=== PATIENT | female | born 1955 | race Caucasian/White ===

== ENCOUNTER 2022-12-27 08:21 | Day surgery (SDC) | payer MEDICARE, OTHER ==
[~2022-12-27] VITALS: Ht 157.5 cm; Wt 65.9 kg
[~2022-12-27 08:21] MED LIST: CENTRUM SILVER1 EAC3 PO; FISH OIL 1,0001 EAC2 PO; HYDROXYZINE HCL25 MG PO; MULTIVITAMINS1 EAC7; PRESERVISION A1 EAC1 PO; PREVACID15 MG; TUMS200 MG PO; VITAMIN D1000 UNIT PO; VITAMIN D5000 UNIT; WELLBUTRIN SR150 MG PO; ZANTAC150 MG PO
--- NOTE | 2022-12-27 10:53 | NUR ---
12/27/22 1053 Heather Benson 1050 PATIENT ARRIVES TO PACU AWAKE BUT DROWSY. DENIES PAIN OR NAUSEA. RESP EVEN AND UNLABORED, NC AT 3 LITERS TURNED OFF. SLEEPING WHEN NOT STIMULATED.
--- NOTE | 2022-12-30 08:08 | OR ---
[facility] [address], [place] [address] Signed DATE OF OPERATION: 12/27/2022 SURGEON: Caroline Pelletier MD PREOPERATIVE DIAGNOSES: 1. Progressive cervical dysphagia and gastroesophageal reflux. 2. History of ectopic mucosa proximal esophagus in 2017. POSTOPERATIVE DIAGNOSES: 1. Proximal esophageal ectopic mucosa, uncertain regarding Perrin's epithelium. 2. Distal ulcerative esophagitis and hiatal hernia. PROCEDURE: Esophagogastroduodenoscopy with biopsy. ANESTHESIA: Intravenous sedation, fentanyl 100 mcg and Versed 3.5 mg. INDICATION: This 67-year-old white woman is a patient of Skye Nicole. In 2017, she underwent upper endoscopy for complaints of cervical dysphagia. She had reflux symptoms as well. She is found to have abnormal appearing epithelium 13 cm from the incisors suggestive of Perrin epithelium. Pathology report showed mild chronic inflammation and reactive changes negative for goblet cell metaplasia, though it did look suggestive of Perrin epithelium. She was seen by me in November of 2022 more than a year ago, anticipating followup upper endoscopy with persistent symptoms. Due to the pandemic and other factors, she delayed endoscopy till this time. She continues to have a rather significant cervical dysphagia and is using Tums on a routine basis. She was prescribed Prevacid previously which she says she has taken though it is not listed in the main medical record at this time. She is here to undergo upper endoscopy to better characterize her reflux issue and cervical dysphagia as well as ectopic mucosa of the proximal cervical esophagus. She understands the risk of bleeding, infection, and perforation related to upper endoscopy and wished to proceed. FINDINGS: The mucosa as previously noted was still present. There was no evidence of neoplasm there. Passage of the scope into the proximal esophagus was slightly challenging and may indicate an underlying process. There is erosive ulcerated distal esophagitis as well. She did have a moderate to large-sized hiatal hernia. The stomach and duodenum are reasonably normal. CLOtest was negative. Electronically Signed By: CAROLINE PELLETIER MD 12/30/22 0808 PATIENT NAME: HERNANDO MURPHY OPERATIVE REPORT DATE OF : 51 REPORT #: [id number] PHYSICIAN: CAROLINE PELLETIER MD PCP: SKYE NICOLE REPORT IS CONFIDENTIAL AND NOT TO BE RELEASED WITHOUT AUTHORIZATION [facility] [address], [place] [address] Signed DESCRIPTION OF PROCEDURE: The patient was brought to the endoscopy suite and placed in the lateral decubitus position after undergoing topical Hurricaine spray hypopharyngeal anesthesia. A bite block was placed. An Olympus video upper endoscope was passed in the hypopharynx. The vocal cords appeared normal. The posterior commissure had mild irritative changes. There was no neoplasm. Advancement of the scope into the esophagus initially was not particularly easy, though it was not difficult. Once in the esophagus, it was easily passed down more distally. In the distal esophagus was linear ulcerative esophagitis. No evidence of Perrin epithelium. No stricture. The scope was passed into the stomach which was insufflated with air. Rugal folds were normal. The antrum was reasonably normal though mildly inflamed and pylorus was normal. Scope was passed through into the duodenum, which was mildly inflamed. Biopsies were obtained of the duodenum and scope withdrawn. Biopsies taken of the antrum and more proximal stomach. Retroflexed view confirmed a moderate-sized hiatal hernia. The scope was straightened and withdrawn to the distal esophagus where linear ulcerative changes were noted and these were biopsied. There was no evidence of neoplasm proper and no sign of Perrin epithelium. The scope was withdrawn to the mid esophagus which was biopsied and mindful of previous findings in the proximal esophagus, careful inspection undertaken proximally. There is an erythematous mucosa patch suggestive of Perrin's epithelium, which was difficult to biopsy as the patient had some issues with swallowing given the scope being at about 13-15 cm. A biopsy was obtained, however. The scope was removed and the patient was taken to the recovery room in good condition. CONCLUDING DIAGNOSES: She has had some progression of cervical dysphagia, known underlying reflux and hiatal hernia. Distal ulcerative esophagitis was noted as well. At this point, we will order a video esophagram to better characterize the proximal esophagus, assess for other competing causes of cervical dysphagia including Zenker's diverticulum and I have dedicated prescription for Prilosec 20 mg p.o. b.i.d. We will see her back in the office following her video esophagram to review her reports and outline the plan of management and assess response to change of therapy. Caroline Pelletier MD /YASMINL /[id number] Electronically Signed By: CAROLINE PELLETIER MD 12/30/22 0808 PATIENT NAME: HERNANDO MURPHY OPERATIVE REPORT DATE OF : 51 REPORT #: [id number] PHYSICIAN: CAROLINE PELLETIER MD PCP: SKYE NICOLE REPORT IS CONFIDENTIAL AND NOT TO BE RELEASED WITHOUT AUTHORIZATION [address] [address] Signed cc: ABDULLAHI Shah Copies: SKYE NICOLE ~ Electronically Signed By: CAROLINE PELLETIER MD 12/30/22 0808 PATIENT NAME: HERNANDO MURPHY OPERATIVE REPORT DATE OF : 51 REPORT #: [id number] PHYSICIAN: CAROLINE PELLETIER MD PCP: SKYE NICOLE REPORT IS CONFIDENTIAL AND NOT TO BE RELEASED WITHOUT AUTHORIZATION
--- NOTE | 2022-12-31 16:22 | PATH ---
[facility] [address] [place], [place] [address] Signed SPECIMEN(S): A DUODENAL BIOPSIES SPECIMEN(S): B ANTRUM BIOPSIES SPECIMEN(S): C PROXIMAL STOMACH BIOPSIES SPECIMEN(S): D DISTAL ESOPHAGEAL BIOPSIES SPECIMEN(S): E MID ESOPHAGEAL BIOPSIES SPECIMEN(S): F PROXIMAL ESOPHAGEAL BIOPSY AT 15CM SPECIMEN SOURCE: A. DUODENAL BIOPSIES B. ANTRUM BIOPSIES C. PROXIMAL STOMACH BIOPSIES D. DISTAL ESOPHAGEAL BIOPSIES E. MID ESOPHAGEAL BIOPSIES F. PROXIMAL ESOPHAGEAL BIOPSY AT 15CM CLINICAL HISTORY: Pre: GERD, surveillance. Post: Large hiatal hernia, esophagitis, proximal ectopic epithelium. FINAL PATHOLOGIC DIAGNOSIS: A. 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 - Negative for atypical epithelial features or pathologic inflammation. B. Antrum biopsies: - Benign gastric antral-type mucosa with focal slight chronic inflammation. - Negative for evidence of helicobacter organisms on routine HE stained sections. C. Proximal stomach biopsies: - Benign gastric-type mucosa with focal slight chronic inflammation. - Negative for Helicobacter organisms on routine HE stained sections. D. Distal esophageal biopsies: - Benign esophageal epithelium and gastric glandular mucosa, negative for specialized intestinal metaplasia or dysplasia. - Negative for increased epithelial eosinophils within the esophageal epithelium. E. Mid esophageal biopsies: - Benign esophageal epithelium, negative for increased epithelial eosinophils. F. Proximal esophageal biopsy at 15 cm: - Benign esophageal epithelium, negative for increased epithelial eosinophils. JVR:[id number] PATIENT NAME: HERNANDO MURPHY PATHOLOGY DATE OF : 51 REPORT #: [id number] PHYSICIAN: ANGEL PATHOLOGY PCP: SKYE CHANEY REPORT IS CONFIDENTIAL AND NOT TO BE RELEASED WITHOUT AUTHORIZATION [facility] [address] [place], [place] [address] Signed MICROSCOPIC EXAMINATION: Histologic sections of all submitted blocks are examined by light microscopy. These findings, together with the gross examination, support the pathologic diagnosis. GROSS DESCRIPTION: A. The specimen, labeled and designated "Lithuanian, duodenal biopsies," is received in formalin and consists of two jacobson soft tissue fragments, ranging from 0.4-0.5 cm. Entirely submitted in (A1). B. The specimen, labeled and designated "Lithuanian, antrum biopsies," is received in formalin and consists of two jacobson soft tissue fragments, ranging from 0.4-0.6 cm. Entirely submitted in (B1). C. The specimen, labeled and designated "Lithuanian, proximal stomach biopsies," is received in formalin and consists of three jacobson soft tissue fragments, ranging from 0.2-0.7 cm. Entirely submitted in (C1). D. The specimen, labeled and designated "Lithuanian, distal esophageal biopsies," is received in formalin and consists of four jacobson soft tissue fragments, ranging from 0.2-0.3 cm. Entirely submitted in (D1). E. The specimen, labeled and designated "Lithuanian, mid esophageal biopsies," is received in formalin and consists of three jacobson soft tissue fragments, ranging from 0.2-0.5 cm. Entirely submitted in (E1). F. The specimen, labeled and designated "Lithuanian, proximal esophageal biopsy at 15 cm," is received in formalin and consists of one jacobson soft tissue fragment, 0.4 cm. Entirely submitted in (F1). VB (under the direct supervision of a pathologist) The Gross Description was prepared using a voice recognition system. The report was reviewed for accuracy; however, sound-alike word errors, addition and/or deletions may occur. If there is any question about this report, please contact Client Services. PERFORMING LABORATORY: The technical component was performed by [facility], [address] [place], [place] [address] [address] (CLIA# [id number]). Professional interpretation was performed by [facility] - [facility], [address] [place] [address], [place] [address] (CLIA#: [id number]). Diagnostician: Shahram Maier MD Pathologist PATIENT NAME: HERNANDO MURPHY PATHOLOGY DATE OF : 51 REPORT #: [id number] PHYSICIAN: ANGEL LEOS PCP: SKYE CHANEY REPORT IS CONFIDENTIAL AND NOT TO BE RELEASED WITHOUT AUTHORIZATION [facility] [address] [place] [id number] Signed Electronically Signed 12/31/2022 Copies: ~ PATIENT NAME: HERNANDO MURPHY PATHOLOGY DATE OF : 51 REPORT #: [id number] PHYSICIAN: ANGEL LEOS PCP: SKYE CHANEY REPORT IS CONFIDENTIAL AND NOT TO BE RELEASED WITHOUT AUTHORIZATION
== END 2022-12-27 11:25 | disposition home or self-care (01) ==
LOC: DS 08:21 → OPS 08:21 → DS 10:15 → OPS 10:15 → DS 11:15 → OPS 11:25
PROVIDERS: ATTEND Surgery
PROC: 0DD78ZX Extraction of Stomach, Pylorus, Via Natural or Artificial Opening Endoscopic, Diagnostic (ICD-10-PCS; 2022-12-27)
PROC: 0DD18ZX Extraction of Upper Esophagus, Via Natural or Artificial Opening Endoscopic, Diagnostic (ICD-10-PCS; 2022-12-27)
PROC: 0DD38ZX Extraction of Lower Esophagus, Via Natural or Artificial Opening Endoscopic, Diagnostic (ICD-10-PCS; 2022-12-27)
PROC: 0DD98ZX Extraction of Duodenum, Via Natural or Artificial Opening Endoscopic, Diagnostic (ICD-10-PCS; principal; 2022-12-27 10:15)
DX: K22.10 Ulcer of esophagus without bleeding (principal); K44.9 Diaphragmatic hernia without obstruction or gangrene; K21.9 Gastro-esophageal reflux disease without esophagitis; Z88.2 Allergy status to sulfonamides; Z79.899 Other long term (current) drug therapy
CPT/HCPCS: 99153; G0500; J2250; J3010; J7121

== ENCOUNTER 2024-11-14 09:45 | Emergency (ER) | payer MEDICARE, OTHER ==
[~2024-11-14] VITALS: Ht 157.5 cm; Wt 69.4 kg
[2024-11-14 10:11] LABS: EOSINOPHILS 0.2 % (0-6); HEMATOCRIT 45.3 % (35.0-50.0); HEMOGLOBIN 15.5 g/dL (12.0-18.0); LYMPHOCYTES 5.6 % (24-44); MCH 37.1 (27-36); MCHC 34.3 g/dl (30-36); MCV 108.3 fl (81-99); MONOCYTES 9.4 % (0-12); NEUTROPHILS 81.8 % (39-80); PLATELET COUNT 199 K/uL (140-440); RBC 4.18 M/ul (4.3-5.7); RDW 14.1 (10.5-15.0)
[2024-11-14 10:21] LABS: ALBUMIN 3.2 g/dL (3.4-5.0); ALBUMIN/GLOBULIN RATIO 0.65 (1.1-2.4); ANION GAP 11.7 (7-21); BILIRUBIN, TOTAL 1.7 ng/dL (0.2-1.0); BUN/CREATININE RATIO 5.71 (6.0-28.6); CALCIUM 8.9 mg/dL (8.5-10.1); CREATININE, SERUM 1.05 mg/dL (0.55-1.02); MAGNESIUM 1.6 mg/dL (1.8-2.4); POTASSIUM 3.7 mmol/L (3.5-5.1); PROTEIN, TOTAL 8.1 g/dL (6.4-8.2)
[2024-11-14] MEDS ORDERED: ONDANSETRON 4 MG TAB ODT SL ONE (10:30)
[2024-11-14] MEDS ORDERED: LIDOCAINE & ANTACID 35 ML BTL PO ONE (10:30)
[2024-11-14] MEDS ORDERED: AZITHROMYCIN 250 MG TAB PO ONE (12:15)
[2024-11-14] MEDS ORDERED: ZITHROMAX250 MG PO (12:17)
[2024-11-14] MEDS ORDERED: PEPCID20 MG PO (12:17)
[2024-11-14 12:30] VITALS: BP 128/108
--- NOTE | 2024-11-14 15:14 | EKG ---
[facility] [address] [facility] [place] [address] Signed Normal sinus rhythm Normal ECG No previous ECGs available Confirmed by Donna Pearce MD () on 11/14/2024 3:14:37 PM Electronically Signed By: DONNA PEARCE MD 11/14/24 1514 PATIENT NAME: HERNANDO MURPHY Electrocardiogram DATE OF : 51 PHYSICIAN: DONNA PEARCE MD REPORT #: [id number] REPORT IS CONFIDENTIAL AND NOT TO BE RELEASED WITHOUT AUTHORIZATION
== END 2024-11-14 12:30 | disposition home or self-care (01) ==
LOC: ED 09:45
PROVIDERS: Emergency Medicine
DX: J18.9 Pneumonia, unspecified organism (principal); K21.9 Gastro-esophageal reflux disease without esophagitis; Z87.891 Personal history of nicotine dependence; Z88.2 Allergy status to sulfonamides
CPT/HCPCS: 36415; 71045; 71260; 80053; 83690; 83735; 84484; 85025; 85379; 93005; 93010; 99285-25; A9270; Q9967

== ENCOUNTER 2025-02-08 11:25 | Emergency (ER) | payer MEDICARE, OTHER ==
[~2025-02-08] VITALS: Ht 157.5 cm; Wt 65.0 kg
[~2025-02-08 11:25] MED LIST changes: +PEPCID20 MG PO; +ZITHROMAX250 MG PO
[2025-02-08] MEDS ORDERED: CITALOPRAM HBR20 MG PO (11:37)
[2025-02-08] MEDS ORDERED: SODIUM CHLORIDE 0.9% 1,000 ML IV ONE (11:45)
[2025-02-08] MEDS ORDERED: ondansetron HCL 4 MG/2 ML VIAL IV ONE (11:45)
[2025-02-08 11:52] LABS: BASOPHILS 0.9 % (0-2); EOSINOPHILS 0.3 % (0-6); HEMATOCRIT 42.1 % (35.0-50.0); HEMOGLOBIN 14.9 g/dL (12.0-18.0); LYMPHOCYTES 11.6 % (24-44); MCH 36.9 (27-36); MCHC 35.4 g/dl (30-36); MCV 104.1 fl (81-99); MONOCYTES 8.5 % (0-12); NEUTROPHILS 78.7 % (39-80); PLATELET COUNT 233 K/uL (140-440); RBC 4.04 M/ul (4.3-5.7); RDW 14.4 (10.5-15.0)
[2025-02-08 12:21] LABS: ALBUMIN 3.2 g/dL (3.4-5.0); ALBUMIN/GLOBULIN RATIO 0.73 (1.1-2.4); ANION GAP 19.5 (7-21); BILIRUBIN, TOTAL 0.8 mg/dL (0.2-1.0); BUN/CREATININE RATIO 8.04 (6.0-28.6); CALCIUM 8.8 mg/dL (8.5-10.1); CREATININE, SERUM 0.87 mg/dL (0.55-1.02); POTASSIUM 3.5 mmol/L (3.5-5.1); PROTEIN, TOTAL 7.6 g/dL (6.4-8.2)
[2025-02-08 13:46] LABS: BILIRUBIN, URINE NEGATIVE (negative); BLOOD/HGB, URINE NEGATIVE (Negative); KETONE, URINE SMALL (Negative); LEUK ESTERASE, URINE NEGATIVE (negative); NITRITE, URINE NEGATIVE (negative); PH, URINE 5.5 (5-7)
[2025-02-08] MEDS ORDERED: ONDANSETRON ODT8 MG PO (14:29)
[2025-02-08 14:38] VITALS: BP 123/70
[2025-02-08] MEDS ORDERED: ONDANSETRON 4 MG TAB ODT SL ONE (14:45)
== END 2025-02-08 14:38 | disposition home or self-care (01) ==
LOC: ED 11:25
PROVIDERS: Emergency Medicine
DX: K52.9 Noninfective gastroenteritis and colitis, unspecified (principal); Z87.891 Personal history of nicotine dependence; Z88.2 Allergy status to sulfonamides; Z79.899 Other long term (current) drug therapy
CPT/HCPCS: 36415; 80053; 81003; 83690; 85025; 96374; 99284-25; A9270; J2405; J7030

== ENCOUNTER 2025-02-16 06:55 | Inpatient (IN) | payer MEDICARE, OTHER ==
[~2025-02-16] VITALS: Ht 157.5 cm; Wt 65.3 kg
[~2025-02-16 06:55] MED LIST changes: +CITALOPRAM HBR20 MG PO; +ONDANSETRON ODT8 MG PO
--- OUTSIDE RECORDS SUMMARY | 2025-02-16 06:57 | XMS ---
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 Crista VISIT COUNT (12 MO.) 3 TRACE Taylor TOTAL 3 NOTE: Visits indicate total known visits. ED/UCC VISIT TRACKING (12 MO.) 02/16/2025 06:55 [facility] TYPE: Emergency COMPLAINT: - WEAKNESS 02/08/2025 11:25 [facility] TYPE: Emergency COMPLAINT: - WEAKNESS DIAGNOSES: - Allergy status to sulfonamides - Noninfective gastroenteritis and colitis, unspecified - Other fdc (current) drug therapy - Personal history of nicotine dependence - Weakness 11/14/2024 09:[address] [facility] [place] TYPE: Emergency COMPLAINT: - HEART RATE ISSUES DIAGNOSES: - Allergy status to sulfonamides - Gastro-esophageal reflux disease without esophagitis - Personal history of nicotine dependence - Pneumonia, unspecified organism - Shortness of breath INPATIENT VISIT TRACKING (12 MO.) No inpatient visits to display in this time frame [email or web address]
[2025-02-16] MEDS ORDERED: SODIUM CHLORIDE 0.9% 1,000 ML IV ONE (07:15)
[2025-02-16] MEDS ORDERED: ondansetron HCL 4 MG/2 ML VIAL IV ONE (07:15)
[2025-02-16 07:28] LABS: BASOPHILS 0.4 % (0-2); EOSINOPHILS 0.2 % (0-6); HEMATOCRIT 40.4 % (35.0-50.0); HEMOGLOBIN 14.6 g/dL (12.0-18.0); LYMPHOCYTES 9.4 % (24-44); MCH 36.6 (27-36); MCHC 36.2 g/dl (30-36); MCV 101.1 fl (81-99); MONOCYTES 12.5 % (0-12); NEUTROPHILS 77.5 % (39-80); PLATELET COUNT 227 K/uL (140-440); RDW 14.5 (10.5-15.0)
[2025-02-16 07:50] LABS: ALBUMIN 3.3 g/dL (3.4-5.0); ALBUMIN/GLOBULIN RATIO 0.77 (1.1-2.4); ANION GAP 17.9 (7-21); BILIRUBIN, TOTAL 1.1 mg/dL (0.2-1.0); POTASSIUM 2.9 mmol/L (3.5-5.1); PROTEIN, TOTAL 7.6 g/dL (6.4-8.2); TSH, 3RD GENERATION 2.647 uIU/mL (0.358-3.740)
[2025-02-16] MEDS ORDERED: POTASSIUM CHLORIDE 10 MEQ/100 ML BAG IV SCH (08:00)
[2025-02-16 08:35] LABS: BILIRUBIN, URINE NEGATIVE (negative); BLOOD/HGB, URINE NEGATIVE (Negative); KETONE, URINE SMALL (Negative); LEUK ESTERASE, URINE TRACE (negative); NITRITE, URINE NEGATIVE (negative)
[2025-02-16 08:44] LABS: BACTERIA, URINE NONE SEEN /hpf (negative); CASTS, URINE NONE SEEN \\lpf; COLLECTION TYPE, URINE CLEAN CATCH; CRYSTALS, URINE NONE SEEN (0-1+); EPITHELIAL CELLS, URINE SQUAMOUS 2+ /lpf (0-1+); RED BLOOD CELLS, URINE 0-1 /hpf (0-5); REFLEX CULTURE, URINE No (No)
--- NOTE | 2025-02-16 09:50 | NUR ---
PATIENT RESTING IN BED WATCHING TV. CURTAIN OPEN FOR PATIENT VISUALIZATION AT NURSES STATION. BED ALARM ACTIVATED. CALL LIGHT AND PERSONAL BELONGINGS ARE WITHIN REACH.
[2025-02-16] MEDS ORDERED: ENOXAPARIN SODIUM 40 MG/0.4 ML SYR SUB-Q SCH ×2 (12:27→12:45)
[2025-02-16] MEDS ORDERED: PANTOPRAZOLE SODIUM 40 MG/10 ML VIAL IV SCH ×2 (12:27→12:45)
[2025-02-16] MEDS ORDERED: SODIUM CHLORIDE 0.9% 1,000 ML IV SCH ×2 (12:30→12:45)
[2025-02-16] MEDS ORDERED: ACETAMINOPHEN 325 MG TAB PO PRN ×2 (12:30→12:45)
[2025-02-16] MEDS ORDERED: ondansetron HCL 4 MG/2 ML VIAL IV PRN ×2 (12:30→12:45)
[2025-02-16 13:08] LABS: ANION GAP 17.7 (7-21); BUN/CREATININE RATIO 9.09 (6.0-28.6); CALCIUM 8.3 mg/dL (8.5-10.1); CREATININE, SERUM 0.77 mg/dL (0.55-1.02); MAGNESIUM 1.7 mg/dL (1.8-2.4); PHOSPHORUS, INORGANIC 2.5 mg/dL (2.5-4.9); POTASSIUM 3.7 mmol/L (3.5-5.1)
[2025-02-16 13:36] VITALS: BP 131/68
[2025-02-16] MEDS ORDERED: ONDANSETRON ODT4 MG PO (13:54)
[2025-02-16] MEDS ORDERED: VITAMIN D350 MCG PO (13:57)
[2025-02-16] MEDS ORDERED: CEFTRIAXONE SODIUM 2 GM in SODIUM CHLORIDE 0.9% 100 ML IV SCH (14:28)
[2025-02-16] MEDS ORDERED: MAGNESIUM SULFATE 2 GM/50 ML BAG IV ONE (14:30)
--- NOTE | 2025-02-16 16:22 | NUR ---
PT HAS BEEN RESTING, UPON ENTERING ROOM PT HAD EMESIS ON GOWN. STATES SHE HAS BEEN NAUSEA JUST LIKE SHE IS AT HOME, PRN ZOFRAN GIVEN - SEE JAN. CLEANED PATINET UP AND PT HAD ANOTHER EMESIS, WHICH GOWNS/LINEN WERE EXCHANGED AGAIN, WIPE DOWN COMPLETED WITH THIS RN AND SKIN TANNER. PT REPOSITIONED IN BED. IV ABX STARTED - SEE JAN. PT PUREWICK IN PLACE, LITTLE OUTPUT SO FAR BUT THERE IS SOME OUTPUT. CALL LIGHT WITHIN REACH, ALL PT CARE NEEDS MET. BED ALARM IN PLACE PT DOES NOT USE CALL LIGHT APPROPRIATELY.
[2025-02-16] MEDS ORDERED: MAGNESIUM SULFATE 50 ML IV ONE (17:04)
--- NOTE | 2025-02-16 17:24 | NUR ---
PT IV ABX COMPLETED, STARTED MAGNESIUM SULFATE - SEE JAN. PT SITTING UP IN THE BED, FAMILY JUST ARRIVED AND VISITING AT THIS TIME. OFFERED PT SOME PAIN MEDS PER FAMILY REQUEST BUT INFORMED ALSO WITH THE NAUSEA, MAY WANT TO HOLD OFF AT THIS TIME, WHICH PATIENT AGREES AT THIS TIME. DINNER TRAY WAS DELIVERED BUT PATIENT DEFERRED AND REQUESTED I MOVE THE TRAY AWAY FROM BEDSIDE. CALL LIGHT WITHIN REACH, ALL PT CARE NEEDS MET AT THIS TIME.
[2025-02-16 17:35] VITALS: BP 104/63
--- NOTE | 2025-02-16 18:17 | NUR ---
PATIENT IN BED AT THIS TIME. SUPERVISOR TANK STORAGE CHARTED VITALS AND I&O'S. CALL LIGHT WITHIN REACH, NO FURTHER NEEDS.
[2025-02-16 18:18] VITALS: BP 104/63
--- NOTE | 2025-02-16 19:10 | NUR ---
REPORT RECEIVED FROM LORENA MORAN. PATIENT RESTING IN BED VISITING WITH HER COUSIN AT BEDSIDE. PATIENT WITHOUT NEEDS AT THIS TIME. CALL LIGHT AND PERSONAL BELONGINGS ARE WITHIN REACH.
[2025-02-16 20:09] VITALS: BP 125/69
[2025-02-16 20:11] VITALS: BP 125/69
--- NOTE | 2025-02-16 20:20 | NUR ---
PATIENT ASSESSMENT COMPLETED. PATIENT IS ALERT AND ORIENTED X4. FRESH ICE WATER PROVIDED. PATIENT WITHOUT FURTHER NEEDS AT THIS TIME. CALL LIGHT AND PERSONAL BELONGINGS ARE WITHIN REACH. VITAL SIGNS ARE STABLE.
[2025-02-16] MEDS ORDERED: MELATONIN 3 MG TAB PO PRN ×2 (21:00)
[2025-02-16] MEDS ORDERED: MIRTAZAPINE 15 MG TAB PO SCH (21:00)
--- NOTE | 2025-02-16 22:58 | NUR ---
IN ROOM FOR HOURLY ROUNDING. PATIENT APPEARS UNCOMFORTABLE, BUT STATES SHE DOES NOT HAVE ANY PAIN. PATIENT DENIES NAUSEA AT THIS TIME WELL. PATIENT REPORTS SHE IS HAVING A HARD TIME FALLING ASLEEP. CALL LIGHT AND PERSONAL BELONGINGS ARE WITHIN REACH.
--- NOTE | 2025-02-16 23:30 | NUR ---
PATIENT MEDICATED PER EMAR. PATIENT AGREED TO LET THIS RN REPOSITION HER. BEAU COMER IN ROOM TO ASSIST THIS RN WITH PATIENT REPOSITIONING. MARLEE CARE DONE AND FRESH PUREWICK PLACED AT THIS TIME. PATIENT WITHOUT FURTHER NEEDS AT THIS TIME. CALL LIGHT AND PERSONAL BELONGINGS ARE WITHIN REACH.
[2025-02-17] VITALS (12 sets, daily range): BP systolic 116–148; BP diastolic 55–104
--- NOTE | 2025-02-17 00:52 | NUR ---
PATIENT RESTING IN BED WITH EYES CLOSED. EVEN AND UNLABORED RESPIRATIONS NOTED. CALL LIGHT AND PERSONAL BELONGINGS ARE WITHIN REACH.
--- NOTE | 2025-02-17 01:50 | NUR ---
IN ROOM FOR PATIENT REPOSITIONING AND MORNING ASSESSMENT. BEAU COMER IN ROOM TO HELP WITH REPOSITIONING AND VITALS. PATIENT REPORTS SHE FEELS LIKE SHE NEEDS TO HAVE A BOWEL MOVEMENT. THIS RN AND BEAU COMER PLACED PATIENT ON BEDPAN AT THIS TIME. THIS RN EDUCATED PATIENT TO CALL WHEN SHE IS FINISHED.
--- NOTE | 2025-02-17 01:55 | NUR ---
DRY CANS OPERATOR AND RN OBTAINED VITALS AND OUTPUT. PT NEEDED TO USE BATHROOM. DRY CANS OPERATOR AND RN PLACED PT ON BEDPAN. PT INSTRUCTED TO CALL WHEN FINISHED. CALL LIGHT WITHIN REACH.
--- NOTE | 2025-02-17 02:30 | NUR ---
PATIENT WAS UNABLE TO HAVE BOWEL MOVEMENT. FRESH PUREWICK PLACED AT THIS TIME. WARM BLANKET PROVIDED. PATIENT WITHOUT FURTHER NEEDS AT THIS TIME. BED ALARM ACTIVATED. CALL LIGHT AND PERSONAL BELONGINGS ARE WITHIN REACH.
--- NOTE | 2025-02-17 03:55 | NUR ---
PATIENT RESTING IN BED ON HER BACK. PATIENT WITH EYES CLOSED. EVEN AND UNLABORED RESPIRATIONS NOTED. CALL LIGHT AND PERSONAL BELONGINGS ARE WITHIN REACH. BED ALARM ACTIVATED.
--- NOTE | 2025-02-17 05:00 | NUR ---
PATIENT RESTING IN BED WITH EYES CLOSED AND MOUTH OPEN. EVEN AND UNLABORED RESPIRATIONS NOTED. CALL LIGHT AND PERSONAL BELONGINGS ARE WITHIN REACH.
--- NOTE | 2025-02-17 05:00 | NUR ---
PATIENT HAS BEEN NPO SINCE MIDNIGHT.
[2025-02-17 05:22] LABS: BASOPHILS 0.1 % (0-2); EOSINOPHILS 0.1 % (0-6); HEMATOCRIT 37.7 % (35.0-50.0); HEMOGLOBIN 13.4 g/dL (12.0-18.0); LYMPHOCYTES 6.2 % (24-44); MCH 36.6 (27-36); MCHC 35.5 g/dl (30-36); MCV 102.8 fl (81-99); MONOCYTES 12.9 % (0-12); NEUTROPHILS 80.7 % (39-80); PLATELET COUNT 217 K/uL (140-440); RBC 3.66 M/ul (4.3-5.7); RDW 14.6 (10.5-15.0)
[2025-02-17 05:41] LABS: ALBUMIN 2.6 g/dL (3.4-5.0); ALBUMIN/GLOBULIN RATIO 0.63 (1.1-2.4); BILIRUBIN, TOTAL 0.7 mg/dL (0.2-1.0); BUN/CREATININE RATIO 8.53 (6.0-28.6); CALCIUM 7.9 mg/dL (8.5-10.1); CREATININE, SERUM 0.82 mg/dL (0.55-1.02); MAGNESIUM 2.4 mg/dL (1.8-2.4); PROTEIN, TOTAL 6.7 g/dL (6.4-8.2)
--- NOTE | 2025-02-17 05:41 | NUR ---
TOPOGRAPHICAL FIELD ASSISTANT OBTAINED VITALS. NO NEW I&O AT THIS TIME. PT STATES NO NEEDS AND CALL LIGHT WITHI REACH.
--- NOTE | 2025-02-17 06:54 | NUR ---
NEW BAG OF NS INFUSING AT THIS TIME. PATIENT WITHOUT FURTHER NEEDS. CALL LIGHT AND PERSONAL BELONGINGS ARE WITHIN REACH.
--- NOTE | 2025-02-17 07:15 | NUR ---
REPORT RECEIVED FROM FUNERAL DRIVER RN JIMMY. ULTRASOUND IS IN THE ROOM AND GETTING AN ABDOMINAL ULTRASOUND. CALL LIGHT AND PERSONAL BELONGINGS ARE WITHIN REACH.
--- NOTE | 2025-02-17 07:35 | NUR ---
0238 THIS RN GOT VERBAL CONSENT FROM PATIENT TO GIVE UPDATE TO PATIENT JH STEELE. JH PHONE NUMBER [phone]. AFTER TALKING WITH JH, SHE STATES PATIENT "CAME DOWN WITH PNA ABOUT 4 WEEKS AGO THEN HAD THE FLU, THEN PROGRESSIVELY STARTED GETTING WORSE." JH ALSO STATES PATIENT WAS WALKING WITH A CANE BEFORE "ALL THIS STARTED ABOUT 3-4 WEEKS AGO". JH WILL BE BY LATER TO VISIT. UPDATE GIVEN TO LORENA SRIVASTAVA, PATIENT DAY SHIFT NURSE.
--- NOTE | 2025-02-17 08:18 | NUR ---
PATIENT LYING IN BED WITH EYES CLOSED. RESPIRATIONS EVEN AND UNLABORED. PUREWICK IN PLACE AND NORMAL SALINE RUNNING AT 125ML/HR. CALL LIGHT IS WITHIN REACH.
--- NOTE | 2025-02-17 08:24 | NUR ---
UR CLINICAL REVIEW: 2MN SAUNDRA, MEETS INPT FOR FTT, HYPONATREMIA, HYPOMAGNESEMIA, HYPOKALEMIA IV FLUIDS, IV ANTIBIOTICS, LAB TRENDING MEDICARE INPT 02/16/2025 @ 1228 ORDER MATCHES REG NO AUTH REQUIRED PER MEDICARE RULES PLAN TO DC TO HOME WITH HOME HEALTH VS SNF.
[2025-02-17] MEDS ORDERED: POTASSIUM BICARBONATE/CIT AC 20 MEQ TABEF PO ONE (09:00)
[2025-02-17] MEDS ORDERED: POTASSIUM CHLORIDE 40 MEQ,LIDOCAINE HCL 1% 40 MG in DEXTROSE 5% 250 ML IV ONE (09:00)
--- NOTE | 2025-02-17 10:11 | NUR ---
VISITED DURING SPIRITUAL CARE ROUNDS. PT APPEARED TO BE SLEEPING. DID NOT DISTURB. PROVIDED PRAYER.
--- NOTE | 2025-02-17 10:11 | NUR ---
PATIENT IS LYING IN BED WITH HOB ELEVATED. BEAU NOWAK IS IN THE ROOM AND GETTING VITAL SIGNS. TV IS ON. PATIENT STATED NO FURTHER NEEDS AT THIS TIME. CALL LIGHT AND PERSONAL BELONGINGS ARE WITHIN REACH.
[2025-02-17] MEDS ORDERED: TUMS200 MG PO (10:14)
--- NOTE | 2025-02-17 10:14 | NUR ---
MED REC COMPLETE
--- NOTE | 2025-02-17 10:17 | NUR ---
PATIENT WAS IN HER BED AT THIS TIME, NEWS REEL CAMERAMAN CHARTED VITALS, PATIENT WAS NPO, CALL LIGHT WITH IN REACH AND NOTHING ELSE NEEDED AT THIS TIME.
--- NOTE | 2025-02-17 10:37 | EKG ---
[facility] [address] [facility] [place] [address] Signed Normal sinus rhythm ST \T\ T wave abnormality, consider inferior ischemia ST \T\ T wave abnormality, consider anterolateral ischemia Prolonged QT Abnormal ECG When compared with ECG of 14-NOV-2024 09:55, Significant changes have occurred Confirmed by Beau Sierra DO ([id number]) on 02/17/2025 10:37:32 AM Electronically Signed By: BEAU SIERRA DO 02/17/25 1037 PATIENT NAME: JEFFREYHERNANDO VIDAL Electrocardiogram DATE OF : 51 PHYSICIAN: BEAU SIERRA DO REPORT #: [id number] REPORT IS CONFIDENTIAL AND NOT TO BE RELEASED WITHOUT AUTHORIZATION
--- NOTE | 2025-02-17 11:10 | NUR ---
PATIENT IS LYING IN BED WITH HOB ELEVATED. PATIENT WITH EYES CLOSED AND RESPIRATIONS ARE EVEN AND UNLABORED. ROUNDED ON THE PATIENT AT THIS TIME. FULL ASSESMENT COMPLETE AND DOCUMENTED IN THE CHART. PATIENT IS ALERT AND ORIENTED TIMES FOUR. PATING WITH NO COMPLAINTS OF PAIN OR NAUSEA. PATIENT UNABLE TO VERBALIZE HER LAST BM. THIS RN PUT IN VERBAL ORDER FOR BOWEL CARE MEDICATIONS TO BE STARTED. PATIENT AFFECT IS FLAT. PATIENT WITH A PUREWICK IN PLACE. THIS RN DELEGATED TO BEAU COBB TO CHANGE THE PUREWICK. BEAU COBB EXPRESSED UNDERSTANDING. PATIENT WORKS WITH PT AND OT. PATIENT WITHG GENERALIZED WEAKNESS NOTED. IV SITE FLUSHED WITH 10 ML NORMAL SALINE. IV DRESSING IS CLEAN, DRY, AND INTACT. NS IS INFUSING AT 125 ML/HR. PATIENT IS ON A REGULAR DIET. ABDOMEN IS FIRM AND DISTENDED. BOWEL TONES ARE ACTIVE IN ALL FOUR QUADRANTS. DIETARY CONSULT IN PLACE. CARDIAC WITH NORMAL S1 AND S2 ON AUSCULTATION. RADIAL AND PEDAL PULSES ARE STRONG BILATERALLY. CAPILLARY REFILL IN THE UPPER AND LOWER EXTREMITIES IS GREATER THAN 3 SECONDS BILATERALLLY. PATIENT WITH NO EDEMA NOTED. SENSATION INTACT WITH NO COMPLAINTS OF NUMBNESS OR TINGLING. PATIENT IS ON ROOM AIR AND LUNG SOUNDS ARE CLEAR IN THE UPPER LOBES AND DIMINISHED IN THE BASES BILATERALLY. PATIENT STATED NO FURTHER NEEDS AT THIS TIME. CALL LIGHT AND PERSONAL BELONGINGS ARE WITHIN REACH.
[2025-02-17] MEDS ORDERED: PHARMACY RENAL DOSE ADJUSTMENT 1 DOSE MISC PO SCH ×2 (12:00)
--- NOTE | 2025-02-17 12:07 | NUR ---
PATIENT IS LYING IN BED WITH EYES CLOSED. RESPIRATIONS ARE EVEN AND UNLABORED. CALL LIGHT AND PERSONAL BELLONGS ARE WITHIN REACH.
--- NOTE | 2025-02-17 12:14 | NUR ---
Spoke with Aleja. She is resting in bed. Speach is very slow. Hands are purple. She states she has always had purple hands since she was a child. Pt is cold and covered with a warm blanket. She denies needs. Drinking a glass of fluid with potassium written on it. She requests water, I let her nurse know.
[2025-02-17] MEDS ORDERED: LIDOCAINE HCL 4% 1 EACH PATCH TD SCH (13:00)
[2025-02-17] MEDS ORDERED: HYDROmorphone HCL 1 MG/ML SYR IV PRN (13:00)
--- NOTE | 2025-02-17 14:08 | NUR ---
PATIENT IS LYING IN BED WITH HOB ELEVATED. PATIENT WITH EYES CLSOED AND RESPIRATIONS ARE EVEN AND UNLABORED. MAINTENANCE FLUIDS AND POTASSIUM CHLORIDE ARE INFUSING AT THIS TIME. PATIENT STATES SHE IS SLEEPING. PATIENT STATED NO NEEDS AT THIS TIME. CALL LIGHT AND PERSONAL BELONGINGS ARE WITHIN REACH.
--- NOTE | 2025-02-17 15:17 | NUR ---
PAIENT LYING IN BED WITH EYES CLOSED, RESPIRATIONS EVEN AND UNLABORED. FOCUSED ASSESSMENTS DOCUMENTED. PATIENT IV FLUSHED AND WNL. PATIENT DENIES PAIN. PATIENT HAS MODERATE ABDOMINAL DISTENTION, TENDER TO PALPATION, AND HAS ACTIVE BOWEL TONES. RAILROAD ACCOUNTANT NOTIFIED RN OF PATIENT NOT VOIDING. BLADDER SCAN WAS DONE ON PATIENT AND ESTIMATED VOLUME WAS OVER 1,000 ML. CALL LIGHT AND PERSONAL BELONGINGS ARE WITHIN REACH.
--- NOTE | 2025-02-17 15:22 | NUR ---
NOTIFIED OF PATIENT NOT VOIDING FOR OUR SHIFT. STATED TO INSERT A FAOLEY CATHETER. STATED HE WOULD PUT IN ORDERS.
[2025-02-17] MEDS ORDERED: LIDOCAINE 2% VISCOUS 6 ML SYR TOP ONE (15:30)
--- NOTE | 2025-02-17 15:58 | NUR ---
PATIENT LYING IN BED WITH EYES CLOSED, RESPIRATIONS EVEN AND UNLABORED. PATIENT EDUCATED ON TALAVERA CATHETER INSERTION. PATIENT EXPRESSED UNDERSTANDING. LORENA SRIVASTAVA AND LORENA WHITMAN ASSISTED WITH INSERTION. PATIENT TOLERATED WELL. 16 BULGARIAN INSERTED WITH CONTENTRATED URINE IN TUBING. BALLOON INFLATED WITH 10ML. PATIENT WITH BRIEF IN PLACE. TALAVERA CATHETER WITH STAT-LOCK ON RIGHT LEG. PATIENT STATED NO FURTHER NEEDS AT THIS TIME. CALL LIGHT AND PERSONAL BELONGINGS ARE WITHIN REACH.
--- NOTE | 2025-02-17 16:26 | NUR ---
PATIENT LYING IN BED WITH HER EYES CLOSED. PATIENT HAS EVEN UNLABORED RESPIRATIONS. IV FLUID INFUSING AT 125ML/HR. CALL LIGHT AND PERSONAL BELONGINGS ARE WITHIN REACH.
--- NOTE | 2025-02-17 16:34 | NUR ---
UPDATE GIVEN TO FAMILY MEMBER AT THIS TIME. HE STATED TO LET THE PATIENT KNOW HE CAME BY BUT SHE WAS SLEEPING. FAMILY MEMBER STATED HE WOULD COME BACK LATER.
--- NOTE | 2025-02-17 17:18 | NUR ---
PATIENT NIECE GIVEN UPDATE AT THIS TIME. ALL QUESTION ANSWERED. CALL ENDED.
--- NOTE | 2025-02-17 17:26 | NUR ---
VITAL SIGNS TAKEN AND DOCUMENTED IN THE CHART. PATIENT LYING IN BED WITH HOB SLIGHTLY ELEVATED. PATIENT HAS EYES CLOSED, RESPIRATIONS ARE EVEN AND UNLABORED. CALL LIGHT AND PERSONAL BELONGINGS ARE WITHIN REACH.
--- NOTE | 2025-02-17 18:10 | NUR ---
PATIENT IS LYING IN BED WITH EYES OPEN AND RESPIRATIONS ARE EVEN AND UNLABORED. PATIENT WITH THE TV AND STATING "I WILL WAIT" ON DINNER. IV PUMP CLEARED OF INTAKE FLUID. PATIENT TALAVERA CATHETER WITH CONCENTRATED URINE. PATIENT STATED NO FURTHER NEEDS AT THIS TIME. CALL LIGHT AND PERSONAL BELONGINGS ARE WITHIN REACH.
--- NOTE | 2025-02-17 19:15 | NUR ---
REPORT RECEIVED FROM LORENA SRIVASTAVA. PATIENT RESTING IN BED WITH EYES CLOSED. EVEN AND UNLABORED RESPIRATIONS NOTED. CALL LIGHT AND PERSONAL BELONGINGS ARE WITHIN REACH.
--- NOTE | 2025-02-17 20:55 | NUR ---
PATIENT SITTING UP IN BED WATCHING TV. PATIENT REQUESTING PAIN MEDICATION WITH NIGHTLY MEDICATIONS. PATIENT WITHOUT FURTHER NEEDS AT THIS TIME. CALL LIGHT AND PERSONAL BELONGINGS ARE WITHIN REACH.
[2025-02-17] MEDS ORDERED: POLYETHYLENE GLYCOL 3350 1 PACKET PO SCH (21:00)
[2025-02-17] MEDS ORDERED: SENNOSIDES/DOCUSATE 1 EA TAB PO SCH (21:00)
[2025-02-17] MEDS ORDERED: LIDOCAINE PATCH REMOVAL 1 EA TD SCH (21:00)
--- NOTE | 2025-02-17 21:30 | NUR ---
PATIENT ASSESSMENT COMPLETED. PATIENT IS ALERT AND ORIENTED X4. PATIENT REPORTING 7/10 PAIN IN HER ABDOMEN. IV PAIN MEDICATION ADMINITERED PER EMAAnastasiia. PEPPER RN IN ROOM TO ASSIST WITH PATIENT REPOSITIONING. PATIENT TOLERATED MEDS WITH APPLESAUCE, BUT TOOK ~2-3 MINUTES TO SWOLLOW EACH BITE. PATIENT WITHOUT FURTHER NEEDS AT THIS TIME. CALL LIGHT AND PERSONAL BELONGINGS ARE WITHIN REACH.
--- NOTE | 2025-02-17 22:02 | NUR ---
PIANO CASE MAKER OBTAINED VITALS AND I&O. TALAVERA CATH EMTPIED. PT STATES NO NEEDS AT THIS TIME. CALL LIGHT WITHIN REACH.
--- NOTE | 2025-02-17 22:41 | NUR ---
LIDOCAINE PATCH REMOVED FROM BACK. PT SITTING UPRIGHT. ATTEMPTED A FEW SIPS OF ENSURE BUT IS DROWSY AND DELAYED SWALLOW NOTED.
[2025-02-18] VITALS (9 sets, daily range): BP systolic 112–145; BP diastolic 59–83
--- NOTE | 2025-02-18 00:38 | NUR ---
PT SLEEPING SOUNDLY-APPEARS COMFORTABLE. NEW BAG IVF HUNG. DINNER TRAY AND ALL FLUIDS REMOVED, PT NOW NPO FOR SURGERY TODAY.
--- NOTE | 2025-02-18 02:14 | NUR ---
PATIENT FOCUS ASSESSMENT COMPLETED. PATIENT IS RESTING IN BED WITH EYES CLOSED. EVEN AND UNLABORED RESPIRATIONS NOTED. PATIENT BOWEL TONES ARE ACTIVE IN ALL 4 QUADRANTS. PATIENT HANDS WERE NOTED TO BE COLD, PULSES ARE STRONG, BUT CAPILLARY REFILL TO BUE ARE >3 SECONDS. WARM BLANKET APPLIED TO PATIENT UPPER BODY AND WRAPPED HER HANDS. TALAVERA WITH CLEAR YELLOW DRAINAGE. CALL LIGHT AND PERSONAL BELONGINGS ARE WITHIN REACH.
--- NOTE | 2025-02-18 04:00 | NUR ---
PATIENT RESTING IN BED WITH TV ON. PATIENT EYES ARE CLOSED AT THIS TIME. EVEN AND UNLABORED RESPIRATIONS NOTED. CALL LIGHT AND PERSONAL BELONGINGS ARE WITHIN REACH.
[2025-02-18 05:18] LABS: BASOPHILS 0.6 % (0-2); EOSINOPHILS 0.6 % (0-6); HEMATOCRIT 32.9 % (35.0-50.0); HEMOGLOBIN 11.7 g/dL (12.0-18.0); LYMPHOCYTES 9.8 % (24-44); MCH 36.5 (27-36); MCHC 35.6 g/dl (30-36); MCV 102.4 fl (81-99); MONOCYTES 16.2 % (0-12); NEUTROPHILS 72.8 % (39-80); PLATELET COUNT 180 K/uL (140-440); RBC 3.21 M/ul (4.3-5.7); RDW 14.8 (10.5-15.0)
--- NOTE | 2025-02-18 05:30 | NUR ---
THIS RN AND BEAU COMER IN ROOM FOR PATIENT'S MORNING VITALS. TALAVERA CARE AND PRE-PROCEDURE WIPE DOWN COMPLETED, FRESH GOWN AND LINENS PROVIDED, AND PERSONAL WATCH TAKEN OFF AND PLACE IN PATIENT'S ROOM LOCK BOX. WARM BLANKETS PROVIDED. PATIENT WITHOUT FURTHER NEEDS AT THIS TIME. CALL LIGHT AND PERSONAL BELONGINGS ARE WITHIN REACH.
[2025-02-18 05:31] LABS: BUN/CREATININE RATIO 6.94 (6.0-28.6); CALCIUM 7.7 mg/dL (8.5-10.1); CREATININE, SERUM 0.72 mg/dL (0.55-1.02); MAGNESIUM 1.9 mg/dL (1.8-2.4)
--- NOTE | 2025-02-18 07:08 | NUR ---
REPORT RECEIVED FROM LORENA MARQUEZ. PATIENT IS LYING IN BED WITH HOB ELEVATED. PATIENT WITH EYES CLOSED AND RESPIRATIONS ARE EVEN AND UNLABORED. CALL LIGHT AND PERSONAL BELONGINGS ARE WITHIN REACH.
[2025-02-18] MEDS ORDERED: CEFAZOLIN SODIUM 2 GM/20 ML SYR IV SCH (07:40)
[2025-02-18] MEDS ORDERED: POTASSIUM CHLORIDE 10 MEQ TABCR PO ONE (07:45)
--- NOTE | 2025-02-18 08:00 | NUR ---
INTO ROOM TO SEE PATIENT. PATIENT NIECE IN ROOM. PATIENT GETTING READY FOR SURGERY. PATIENT STATES SHE SLEPT BETTER LAST NIGHT. ASKED IF THEY HAD ANY QUESITONS AT THIS TIME. DENIES ANY NEEDS.
--- NOTE | 2025-02-18 08:15 | NUR ---
FULL ASSESSMENT COMPLETE AT THIS TIME. PATIENT WITH TWO VISITORS IN THE ROOM AT THIS TIME. PATIENT IS LYING IN BED WITH HOB ELEVATED. PATIENT IS ALERT AND ORIENTED TIMES FOUR. PATIENT AFFECT IS FLAT BUT IS MORE TALKATIVE THAN YESTERDAY. PATIENT WITH PT, OT, AND ST ORDERED. PATIENT WITH GENERALIZED WEAKNESS. PATIENT WITH A TALAVERA CATHETER IN PLACE THAT HAS CONCENTRATED URINE. SCD'S IN PLACE. NS IS INFUSING AT 125 ML/HR. PATIENT IS NPO AT THIS TIME FOR SURGERY. ABDOMEN IS TENDER AND MILDLY DISTENDED. BOWEL TONES ARE ACTIVE IN ALL FOUR QUADRANTS. CARDIAC WITH NORMAL S1 AND S2 ON AUSCULTATION. RADIAL AND PEDAL PULSES ARE STRONG BILATERALLY. CAPILLARY REFILL IN THE UPPER AND LOWER EXTREMITIES IS GREATER THAN 3 SECONDS. NO EDEMA NOTED. SENSATION INTACT WITH NO COMPLAINTS OF NUMBNESS OR TINGLING. PATIENT IS ON ROOM AIR WITH LUNG SOUNDS ARE CLEAR IN THE UPPER LOBES AND DIMINISHED IN THE BASES BILATERALLY. IV SITE FLUSHED WITH 10 ML NORMAL SALINE. IV DRESSING IS CLEAN, DRY, AND INTACT. PATIENT RATED PAIN 2/10 IN THE MIDDLE BACK BUT IS NOT REQUESTING ANYTHING FOR PAIN. PATIENT WITH NO COMPLAINTS OF NAUSEA. PATIENT STATED NO FURTHER NEEDS AT THIS TIME. CALL LIGHT AND PERSONAL BELONGINGS ARE WITHIN REACH.
--- NOTE | 2025-02-18 08:25 | NUR ---
LORENA SRIVASTAVA AND STUDENT NURSE ANA IN ROOM GIVING MEDICATIONS. HELP WAS OFFERED AND DECLINED. NO CARES WERE REQUESTED. CALL LIGHT AND PERSONAL ITEMS ARE WITHIN REACH. FAMILY IN THE ROOM VISITING.
[2025-02-18] MEDS ORDERED: POTASSIUM CHLORIDE 40 MEQ in DEXTROSE 5% 250 ML IV ONE ×3 (09:00→15:00)
--- NOTE | 2025-02-18 09:14 | NUR ---
PATIENT LYING IN BED WITH HOB ELEVATED AND SCDS IN PLACE. PATIENT HAS POTASSIUM INFUSING PER EMAR. IV IS PATENT AFTER FLUSHING WITH 10ML NS. SURGEON IN WITH PATIENT AND TWO VISITOR EDUCATING ABOUT PROCEDURE. CALL LIGHT AND PERSONAL BELONGINGS ARE WITHIN REACH.
[2025-02-18] MEDS ORDERED: MAGNESIUM SULFATE 1 GM/2 ML VIAL IV ONE (09:45)
[2025-02-18] MEDS ORDERED: MAGNESIUM SULFATE 2 GM/50 ML BAG IV ONE (10:15)
--- NOTE | 2025-02-18 10:26 | NUR ---
TALKED WITH PATIENT AND FAMILY ABOUT SNF. AGREEABLE TO GO ONCE SURGERY IS COMPLETE FOR STRENGTHING. PATIENT FAMILY GIVEN PATIENT CHOICE LETTER. IMM LETTER COMPLETED WITH PATIENT.
--- NOTE | 2025-02-18 11:05 | NUR ---
CHART SENT TO [facility].
--- NOTE | 2025-02-18 11:18 | NUR ---
PATIENT IS LYING IN BED WITH HOB ELEVATED. PATIENT WITH EYES OPEN AND RESPIRATIONS ARE EVEN AND UNLABORED. TV IS ON. MAGNESIUM SULFATE INFUSION COMPLETE AND REMOVED FROM THE PUMP. PATIENT STATED NO NEEDS AT THIS TIME. CALL LIGHT AND PERSONAL BELONGINGS ARE WITHIN REACH.
--- NOTE | 2025-02-18 11:46 | NUR ---
THIS RN CLARIFIED ORDER TO ADMINISTER ADDITIONAL DOSE OF IV POTASSIUM CHLORIDE IV. STATED TO GIVE THAT ADDITIONAL DOSE. NO NEW ORDERS AT THIS TIME.
--- NOTE | 2025-02-18 12:09 | NUR ---
PATIENT IS LYING IN BED WITH HOB ELEVATED. SHE IS RESTING WITH HER EYES CLOSED. SHE HAS EVEN UNLABORED RESPIRATIONS. POTASSIUM IS CONTINUING TO INFUSE THROUGH THE IV. THERE ARE NO SIGNS OF INFILTRATION OR OCCLUSION. CALL LIGHT AND PERSONAL BELONGINGS ARE WITHIN REACH.
--- NOTE | 2025-02-18 12:47 | NUR ---
PATIENT IS LYING IN BED WITH HOB ELEVATED. LUNCH TRAY IS INFRONT OF HER AND CURTAIN IS OPEN FOR VISUALIZATION. CALL LIGHT AND PERSONAL BELONGINGS ARE WITHIN REACH. PATIENT DENIES ANY FURTHER NEEDS AT THIS TIME.
--- NOTE | 2025-02-18 13:31 | NUR ---
PATIENT LYING IN BED WITH HOB ELEVATED AND LUNCH TRAY IS INFRONT OF HER. PATEINT COMPLAINED OF POTTASSIUM BURNING IN THE PAST. SHE WAS EDUCATED TO CALL WHEN IT GAMA, SO WE COULD TURN THE RATE DOWN. SHE DENIED CURRENT PAIN AT SITE OR ANY BURNING. SHE STATED SHE UNDERSTOOD HOW AND WHEN TO CALL. PATIENT DENIED FURTHER NEEDS AT THIS TIME AND COMMUNICATED SHE WAS STILL WORKING ON HER LUNCH TRAY. CALL LIGHT AND PERSONAL BELONGINGS ARE WITHIN REACH. PRIMARY NURSE, ATIF NOTIFIED OF IV POTASSIUM BURNING IN THE PAST.
--- NOTE | 2025-02-18 14:55 | NUR ---
PATIENT IS LYING IN BED WITH SCDS IN PLACE. FOCUSED ASSESSMENTS DOCUMENTED IN CHART. PATIENT DENIES PAIN BUT RATED TWO FOR HER FACES SCORE WITH REPOSITIONING AND BOOSTING. IV POTASSIUM IS INFUSING. THERE ARE NO SIGNS OF INFILTRATION OR PHLEBITIS. PATIENT DENIES ANY BURNING WITH IV INFUSION. PATIENT'S ABDOMEN IS MILDLY DISTENDED AND FIRM IN THE RIGHT UPPER QUADRANT. PATIENT'S RUQ IS TENDER TO PALPATION. PATIENT HAS ACTIVE BOWEL TONES THROUGHOUT AND DENIES NAUSEA. PATIENT HAS CALL LIGHT AND PERSONAL BELONGINGS WITHIN REACH. PATIENT DENIES FURTHER NEEDS AT THIS TIME. BEDBATH AND GOWN CHANGE WAS DELEGATED TO BEAU COBB. REZA EXPRESSED UNDERSTANDING.
--- NOTE | 2025-02-18 15:24 | NUR ---
PATIENT IS LYING IN BED WITH EYES CLOSED. PATIENT WAS EASILY AROUSABLE WITH VERBAL STIMULI. SHE DENIED ANY NEEDS AT THIS TIME. PATIENT HAS CALL LIGHT AND PERSONAL BELONGINGS WITHIN REACH.
--- NOTE | 2025-02-18 16:03 | NUR ---
PATIENT LYING IN BED WITH HOB ELEVATED. PATIENT IS WATCHING TV WITH EVEN RESPIRATIONS. PATIENT DENIES ANY NEEDS AT THIS TIME. POTASSIUM IS INFUSING, PATIENT DENIES BURNING OR IV LEAKING. CALL LIGHT AND PERSONAL BELONGINGS ARE WITHIN REACH.
[2025-02-18 17:08] LABS: BUN/CREATININE RATIO 7.14 (6.0-28.6); CALCIUM 8.1 mg/dL (8.5-10.1); CREATININE, SERUM 0.7 mg/dL (0.55-1.02); MAGNESIUM 2.2 mg/dL (1.8-2.4)
--- NOTE | 2025-02-18 17:09 | NUR ---
PATIENT IS LYING IN BED WITH HOB ELEVATED. PATIENT IS WORKING WITH PHYSICAL THERAPY AT THIS TIME. PATIENT WITH TWO VISITORS IN THE ROOM AT THIS TIME. PHYSICAL THERAPY AND PATIENT WITH NO NEEDS AT THIS TIME. CALL LIGHT AND PERSONAL BELONGINGS ARE WITHIN REACH.
[2025-02-18] MEDS ORDERED: SODIUM CHLORIDE 0.9% 1,000 ML IV SCH (18:00)
--- NOTE | 2025-02-18 18:15 | NUR ---
PATIENT IN BED AT THIS TIME. THIS NIGHT CUSTODIAN AND BEAU COBB DID BED BATH ON PATIENT. PATIENT WAS PROVIDED WITH FRESH GOWN, FRESH LINENS, CATHERTER CARE, AND COMPLETE BED BATH. CALL LIGHT WITHIN REACH, NO FURTHER NEEDS AT THIS TIME.
--- NOTE | 2025-02-18 18:30 | NUR ---
PATIENT IS LYING IN BED WITH HOB ELEVATED. PATIENT HAS DINNER TRAY INFRONT OF HER. NS AND IV POTASSIUM RESTARTED, NS INFUSING AT 75ML/HR. PATIENT IS DISORIENTED TO TIME. SHE COULD NOT THINK OF THE MONTH AND THOUGHT IT WAS 1974 WHEN ASKED THE YEAR. SHE FOLLOWS COMMANDS APPROPRIATELY WITH SOME SLOWNESS. PATIENT COMPLAINED OF BILATERAL UPPER EXTREMITY WEAKNESS AND SORENESS. CALL LIGHT AND PERSONAL BELONGINGS ARE WITHIN REACH.
--- NOTE | 2025-02-18 18:38 | NUR ---
NOTIFIED OF PATIENT CHANGED IN STATUS. PATIENT IS NOT ORIENTED TO TIME AND WHY SHE IS IN THE HOSPITAL. STATED SHE WOULD BE COMING DOWN TO SEE HER. NO FURTHER ORDERS AT THIS TIME. CALL ENDED.
--- NOTE | 2025-02-18 18:45 | NUR ---
, , AND THIS RN ROUND ON THE PATIENT AT THIS TIME. NO FURTHER ORDERS AT THIS TIME.
[2025-02-18] MEDS ORDERED: bisacodyL 10 MG SUPP PR ONE (19:00)
--- NOTE | 2025-02-18 20:23 | NUR ---
CLIENT RESOLUTION SPECIALIST OBTAINED VITALS AND I&O. TALAVERA BAG EMPTIED. PT STATES NO NEEDS AT THIS TIME. CALL LIGHT WITHIN REACH.
--- NOTE | 2025-02-18 21:15 | NUR ---
FLAT AFFECT, ALERT AND ORIENTED, SLOW RESPONSE. ASPIRATION PRECAUTIONS IN PLACE, HOB ELEVATED WITH MEALS AND PO INTAKE. DULC SUPPOSITORIUM (R) GIVEN PROCEDURE EXPLAINED, COOPERATIVE. oN ROOM AIR, LUNGS DIM AT BAES, ABD DISTENDED FIRM, TENDER, EMILY, HELPED WITH TURNING AND REPOSITIONING, GENERALIZED EDEMA TO HANDS, SCDS IN PLACE, LE ELEVATED. NO C/O ABD PAIN. IVF INFUSING RAC. WATCHING TV
--- NOTE | 2025-02-18 23:49 | NUR ---
Used call light, answered appropriately. placed on bedpan, had smear of liquid yellow bm. skin care, attends changed. f/c patent. Repositioned in bed, scds in place, IVf infusing
[2025-02-19] VITALS (10 sets, daily range): BP systolic 128–163; BP diastolic 83–105
--- NOTE | 2025-02-19 02:22 | NUR ---
eyes closed, repositions self in bed, on room air.IVF infusing, f/c in place, sdcs in place
[2025-02-19 05:33] LABS: BASOPHILS 0.3 % (0-2); EOSINOPHILS 0.3 % (0-6); HEMATOCRIT 33.6 % (35.0-50.0); MCH 36.5 (27-36); MCHC 35.7 g/dl (30-36); MCV 102.3 fl (81-99); MONOCYTES 7.6 % (0-12); NEUTROPHILS 84.8 % (39-80); PLATELET COUNT 201 K/uL (140-440); RBC 3.28 M/ul (4.3-5.7); RDW 14.8 (10.5-15.0)
[2025-02-19 05:43] LABS: ANION GAP 12.4 (7-21); BUN/CREATININE RATIO 3.17 (6.0-28.6); CALCIUM 7.8 mg/dL (8.5-10.1); CREATININE, SERUM 0.63 mg/dL (0.55-1.02); MAGNESIUM 1.9 mg/dL (1.8-2.4); POTASSIUM 3.4 mmol/L (3.5-5.1)
--- NOTE | 2025-02-19 05:54 | NUR ---
Awakens easily, on room air, no c/o SOB or abd pain. abd distended tener, EMILY, got a Dulcolax supp. (R) and had only a scant amont of liquid bm, no further results. IVF infusing w/o problems. NPO since midnihgt, oral care done. Pt alert and oriented x4. cooperative. F/C patent draining dark yellow urine, pericare and f/c care done. SCD's in place, Repositioned in bed. aware of NPO due to probable am surgery. no questions asked
[2025-02-19] MEDS ORDERED: CEFAZOLIN SODIUM 2 GM/20 ML SYR IV SCH (07:00)
--- NOTE | 2025-02-19 07:15 | NUR ---
REPORT RECEVIED FROM SUPERVISOR PREP RN MARITA. PATIENT IS LYING IN BED WITH EYES CLOSED AND RESPIRATIONS ARE EVEN AND UNLABORED. CALL LIGHT AND PERSONAL BELONGINGS ARE WITHIN REACH.
[2025-02-19] MEDS ORDERED: POTASSIUM CHLORIDE 40 MEQ in DEXTROSE 5% 250 ML IV ONE (09:00)
--- NOTE | 2025-02-19 09:06 | NUR ---
PATIENT LYING IN BED WITH EYES CLOSED. PATIENTS RESPIRATIONS ARE EVEN AND UNLABORED. PATIENT WAS DROWSY THROUGHOUT MEDICATION ADMINISTRATION, BUT EASILY AROUSABLE TO VERBAL STIMULATION. PATIENT RESPONDED TO QUESTIONS WITH RAMBLING. PATIENT ORIENTED TO SELF. MORNING MEDICATIONS ADMINISTERED PER EMAR. PATIENT HAS TWO VISITORS IN THE ROOM AT THIS TIME. IV FLUSHED WITH 10ML NS AND PATIENT DENIED BURNING OR PAIN. INFILTRATION OR LEAKING NOT NOTED AT THIS TIME. LR INFUSING AT 75ML/HR. CALL LIGHT AND PERSONAL BELONGINGS ARE WITHIN REACH. PATIENT DENIED FURTHER NEEDS AT THIS TIME.
--- NOTE | 2025-02-19 09:17 | NUR ---
PATIENT FAMILY UPDATED REGARDING BLOOD CULTURES AND HOW THERE IS NO GROWTH AT THIS TIME. NO FURTHER QUESTIONS OR CONCERNS FROM FAMILY.
--- NOTE | 2025-02-19 10:04 | NUR ---
PATIENT IS LYING IN BED WITH EYES CLOSED AND RESPIRATIONS ARE EVEN AND UNLABORED. LEAVING THE ROOM AFTER GIVING THE PATIENT FAMILY AN UPDATE. PATIENT FAMILY WITH NO FURTHER QUESTIONS OR CONCERNS.
--- NOTE | 2025-02-19 10:50 | NUR ---
PRE SURGERY HIBA CLEANSE DONE AT 0900. PATIENT'S GOWN AND BED LINENS CHANGED. TALAVERA CARE PERFORMED. PATIENT HAD A SMALL BOWEL MOVEMENT THAT WAS CHARTED. FAMILY IS IN THE ROOM VISITING. CALL LIGHT AND PERSONAL ITEMS ARE WITHIN REACH.
--- NOTE | 2025-02-19 11:40 | NUR ---
PATIENT IS SITTING ON BEDPAN WITH HOB ELEVATED. PATIENT ASSESSMENT DOCUMENTED IN CHART. PATIENT HEART SOUNDS ARE S1 & S2. RADIAL AND PEDAL PULSES ARE STRONG. CAPPILARY REFILL IS LESS THAN 3 SECONDS. PATIENT HAS 1+ PITTING EDEMA IN BILATERAL LOWER EXTREMITIES. SENSATION INTACT AND PATIENT DENIES ANY NUMBNESS OR TINGLING. PATIENT IS ON ROOM AIR WITH CLEAR UPPER LOBES AND DIMINISHED IN THE BASES. PATIENT'S ABDOMEN IS MODERATELY DISTENDED AND FIRM. PATIENT HAS ACTIVE BOWEL TONES IN ALL FOUR QUADRANTS. PATIENT HAS GENERALIZED WEAKNESS AND A FLAT AFFECT. PATIENT IS DISORIENTED TO TIME. PAIN IS DENYING PAIN AT THIS TIME. CALL LIGHT AND PERSONAL BELONGINGS ARE WITHIN REACH. IV IS INFUSING AT THIS TIME. PATIENT DENIES PAIN OR BURNING WITH INFUSION. THERE ARE NO SIGNS OF LEAKING OR INFILTRATION.
--- NOTE | 2025-02-19 12:18 | NUR ---
PATIENT LYING IN BED WITH HOB ELEVATED. PATIENT WAS TAKEN OFF BEDPAN, SHE HAD A BOWEL MOVEMENT AFTER THE ENEMA. DRAW SHEET AND CHUCKS CHANGES AFTER BM. PATIENT REPOSITIONED AND DENIED ANY PAIN OR NAUSEA. PATIENT DENIES FURTHER NEEDS AT THIS TIME. CALL LIGHT AND PERSONAL BELONGINGS ARE WITHIN REACH.
--- NOTE | 2025-02-19 12:19 | NUR ---
NOTIFIED THAT PATIENT IS STILL NPO. STATED HE WOULD PUT IN A CLEAR LIQUID DIET. UPDATED REGARDING RESULTS OF ENEMA. WITH NO FURTHER ORDERS AT THIS TIME.
[2025-02-19] MEDS ORDERED: MAGNESIUM CITRATE 300 ML BTL PO ONE (12:30)
[2025-02-19] MEDS ORDERED: POTASSIUM PHOSPHATE 30 MMOL in DEXTROSE 5% 500 ML IV ONE (13:30)
--- NOTE | 2025-02-19 14:17 | NUR ---
PATIENT LYING IN BED WITH HOB ELEVATED. PATIENT ENCOURAGED TO CONTINUE DRINKING MORE MAGNESIUM CITRATE. SHE REPORTED FEELING NAUSEOUS AFTER TAKING A FEW BIG DRINKS OF THE MEDICINE. PRIMARY NURSE WAS NOTIFIED AND PATIENT WAS INFORMED WE WOULD KEEP AN EYE ON HER. CALL LIGHT AND PERSONAL BELONGINGS ARE WITHIN REACH.
--- NOTE | 2025-02-19 14:23 | NUR ---
PATIENT LEFT THE FLOOR AT THIS TIME FOR HEAD CT WITH IMAGING.
--- NOTE | 2025-02-19 15:47 | NUR ---
PATIENT IS LYING IN BED WITH HOB ELEVATED. PATIENT'S VISITOR RECIEVED AN UPDATE WITH PATIENT'S APPROVAL. FOCUSED ASSESSMENT DOCUMENTED IN THE CHART. ABDOMEN IS TENDER AND MILDLY DISTENDED. PATIENT DENIES NAUSEA. PATIENT IS ALERT AND ORIENTED TIMES FOUR. PATIENT ENCOURAGED TO DRINK MORE OF THE MAHNESIUM CITRATE. PATIENT TOLERATED WELL. PATIENT DENIED PAIN AT THIS TIME. IV FLUSHED WITH 10 ML NS, PATIENT DENIED BURNING OR PAIN. NO INFILTRATION OR LEAKING NOTED WITH FLUSHING. IV FLUIDS AND POTASSIUM PHOSPHATE INFUSING AT THIS TIME. PATIENT IS CHATTING WITH VISITOR AT THE BEDSIDE. CALL LIGHT AND PERSONAL BELONGINGS ARE WITHIN REACH.
--- NOTE | 2025-02-19 16:40 | NUR ---
PATIENT IS SITTING UP IN CHAIR WITH BILATERAL LOWER EXTREMITIES ELEVATED. PATIENT WAS MOVED TO CHAIR FROM BED USING MARCELO LIFT. PRIMARY NURSE, GASTON SRIVASTAVA RN IN THE ROOM. URINE SAMPLE COLLECTED FROM TALAVERA PORT. PATIENT HAS IV FLUIDS AND POTASSIUM INFUSING. PATIENT TOLERATED MOVEMENT WELL. SHOWER CAP USED AND HAIR COMBED. PATIENT HAS TRAY WITH DINNER AND MAGNESIUM CITRATE. CALL LIGHT AND PERSONAL BELONGINGS ARE WITHIN REACH.
[2025-02-19 17:07] LABS: BILIRUBIN, URINE NEGATIVE (negative); BLOOD/HGB, URINE TRACE-I (Negative); KETONE, URINE SMALL (Negative); LEUK ESTERASE, URINE NEGATIVE (negative); NITRITE, URINE NEGATIVE (negative)
[2025-02-19 17:12] LABS: CRYSTALS, URINE NONE SEEN (0-1+); EPITHELIAL CELLS, URINE SQUAMOUS 1+ /lpf (0-1+)
[2025-02-19 17:13] LABS: BACTERIA, URINE NONE SEEN /hpf (negative); CASTS, URINE NONE SEEN \\lpf; COLLECTION TYPE, URINE CLEAN CATCH; REFLEX CULTURE, URINE No (No)
--- NOTE | 2025-02-19 17:29 | NUR ---
PATIENT IS LYING IN THE CHAIR WITH BILATERAL LOWER EXTREMITIES ELEVATED. PATIENT WITH EYES CLOSED AND RESPIRATIONS ARE EVEN AND UNLABORED. CALL LIGHT AND PERSONAL BELONGINGS ARE WITHIN REACH.
--- NOTE | 2025-02-19 18:17 | NUR ---
PATIENT IS SITTING IN THE CHAIR WITH HOB SLIGHTLY ELEVATED. POTASSIUM PHOSPHATE AND IV FLUIDS INFUSING. PATIENT HAS EVEN AND UNLABORED RESPIRATIONS, HER EYES ARE CLOSED. MAGNESIUM CITRATE IS ON TRAY IN FRONT OF PATIENT. CALL LIGHT AND PERSONAL BELONGINGS ARE WITHIN REACH.
--- NOTE | 2025-02-19 19:07 | NUR ---
PATIENT TRANSFERRED BACK TO BED WITH LORENA COBB, THIS RN, AND ANA, STUDENT NURSE. PATIENT HOYERED BACK TO BED. PATIENT POSITIONED IN BED WITH THE BED CLAROS UNDERNEATH. PATIENT EXPRESSED FEELING LIKE SHE WAS ON THE BED CLAROS. BEAU COBB STATED SHE WOULD COME BACK IN 5-10 MINUTES TO CHECK ON HER. PATIENT STATED NO FURTHER NEEDS AT THIS TIME. CALL LIGHT AND PERSONAL BELONGINGS ARE WITHIN REACH.
--- NOTE | 2025-02-19 21:09 | NUR ---
more alert and oriented to all, flat affect. follows instructins and lets need known. On room air. lungs dim at bases, faint heart sounds noted. abd more softer, tender, EMILY, had x2 medium liquid brown bms this shift. skin care done. f/c patent, care done. scds off at her requests at this time, LE elevated. Edema to hands and feet no changes, IVF infusing w/o problems RAC. No c/o pain or sob with exertion. was incontinent of bm and whole bedding hcnage and gown done, cooperative
[2025-02-20] VITALS (8 sets, daily range): BP systolic 138–165; BP diastolic 62–102
--- NOTE | 2025-02-20 00:27 | NUR ---
used call light, incontinent of large amount of liquid bm. skin care. f/c patent. clean attends in place, cooperative, no c/o pain.
--- NOTE | 2025-02-20 02:16 | NUR ---
Eyes closed, no s/sx ditress, moves arm, IVF infusing w/o problems. f/c patent, scds in place,
--- NOTE | 2025-02-20 04:10 | NUR ---
On room air, no s/sx distress, eyes closed, f/c patent. scds in place. IVF infusing w/o problems
[2025-02-20 05:29] LABS: BASOPHILS 0.4 % (0-2); HEMATOCRIT 33.6 % (35.0-50.0); HEMOGLOBIN 12.1 g/dL (12.0-18.0); LYMPHOCYTES 13.9 % (24-44); MCH 36.6 (27-36); MCHC 36.2 g/dl (30-36); MCV 101.1 fl (81-99); MONOCYTES 17.2 % (0-12); NEUTROPHILS 66.5 % (39-80); PLATELET COUNT 194 K/uL (140-440); RBC 3.32 M/ul (4.3-5.7); RDW 14.7 (10.5-15.0)
[2025-02-20 05:45] LABS: ANION GAP 13.3 (7-21); BUN/CREATININE RATIO 1.81 (6.0-28.6); CALCIUM 7.7 mg/dL (8.5-10.1); CREATININE, SERUM 0.55 mg/dL (0.55-1.02); MAGNESIUM 1.9 mg/dL (1.8-2.4); POTASSIUM 3.3 mmol/L (3.5-5.1)
--- NOTE | 2025-02-20 06:29 | NUR ---
Awakens easily, no c/o pain, moves legs, scds inplace, IVF infusing w/o problems. Incontinent of liquid bm x2 since midnight. liquid large. f/c patent. voiding large amounts of yellow urine
--- NOTE | 2025-02-20 07:08 | NUR ---
REPORT RECEIVED FROM SCORER SINGLE RN MARITA. PATIENT IS LYING IN BED WITH EYES CLOSED AND RESPIRATIONS ARE EVEN AND UNLABORED. CALL LIGHT AND PERSONAL BELONGINGS ARE WITHIN REACH.
--- NOTE | 2025-02-20 08:00 | NUR ---
MD NOTIFIED OF PATIENT STRUGGLING TO SWALLOW PILLS. GAVE VERBAL ORDER TO GIVE LIQUID SUSPENSION OF POTASSIUM CHLORIDE AT A DOSE OF 40 MEQ. RN DISCONTINUED THE PO ORDER AND INPUT THE ORDER FOR LIQUID SUSPENSION OF POTASSIUM CHLORIDE. NO FURTHER ORDERS AT THIS TIME.
[2025-02-20 08:18] LABS: CREATININE, RANDOM URINE 83.04 mg/dL (NOT ESTABLISHED)
--- NOTE | 2025-02-20 08:31 | NUR ---
PATIENT IS LYING IN BED WITH EYES CLOSED AND RESPIRATIONS ARE EVEN AND UNLABORED. NS IS INFUSING AT 75 ML/HR. CALL LIGHT AND PERSONAL BELONGINGS ARE WITHIN REACH.
[2025-02-20] MEDS ORDERED: POTASSIUM CHLORIDE 10 MEQ TABCR PO ONE (09:00)
[2025-02-20] MEDS ORDERED: POTASSIUM CHLORIDE 20 MEQ/15 ML CUP PO ONE (09:00)
--- NOTE | 2025-02-20 09:03 | NUR ---
PATIENT IN BED AT THIS TIME. CAFETERIA TEAM LEADER CHARTED HOURLY ROUNDS. CALL LIGHT WITHIN REACH, NO FURTHER NEEDS AT THIS TIME.
--- NOTE | 2025-02-20 10:00 | NUR ---
PATIENT IS LYING IN BED WITH HOB ELEVATED. PATIENT WITH EYES OPEN AND RESPIRATIONS ARE EVEN AND UNLABORED. PATIENT IS MUCH MORE ALERT THAN THE PREVIOUS MORNING. 0900 MEDICATIONS ADMINISTERED PER THE EMAR. PATIENT IS ALERT AND ORIENTED TIMES FOUR. PATIENT LAST BM WAS 02/20/25. PATIENT RATED PAIN 3/10 IN THE MIDDLE OF BACK AND COCCYX. LIDOCAIN PATCH IN PLACE AND PATIENT WITH NO FURTHER REQUESTS FOR PAIN MEDICATION. PATIENT WITH THE TALAVERA CATHETER IN PLACE. MARLEE AND TALAVERA CARE COMPLETE AT THIS TIME. URINE IS LIGHT YELLOW IN COLOR. PATIENT WITH PT, OT, AND ST CONSULTS. GENERALIZED WEAKNESS NOTED. IV FLUIDS DISCONTINUED. IV FLUSHED WITH 10 ML NORMAL SALINE AND IS SALINE LOCKED. IV DRESSING IS CLEAN, DRY, AND INTACT. SCD'S IN PLACE. PATIENT IS ON A FULL LIQUID DIET. BOWEL TONES ARE ACTIVE IN ALL FOUR QUADRANTS. ABDOMEN IS FIRM WITH MILD DISTENTION. CARDIAC WITH NORMAL S1 AND S2 ON AUSCULTATION. RADIAL AND PEDAL PULSES ARE STRONG BILATERALLY. CAPILLARY REFILL IN THE UPPER EXTREMITIES IS GREATER THAN 3 SECONDS AND THE CAPILLARY REFILL IN THE LOWER EXTREMITIES IS LESS THAN 3 SECONDS. 1+ PITTING EDEMA NOTED TO THE BILATERAL LOWER EXTREMITIES. SENSATION INTACT WITH NUMBNESS AND TINGLING NOTED TO THE BILATERAL HANDS. PATIENT IS ON ROOM AIR AND LUNG SOUNDS ARE CLEAR BILATERALLY. PATIENT IS SAT UP IN BED AND EATING BREAKFAST. PATIENT STATED NO FURTHER NEEDS AT THIS TIME. CALL LIGHT AND PERSONAL BELONGINGS ARE WITHIN REACH.
--- NOTE | 2025-02-20 11:01 | NUR ---
PATIENT IS LYING IN BED WITH HOB ELEVATED WITH BREAKAST TRAY INFRONT OF HER. PATIENT HAS MULTIPLE VISITORS IN THE ROOM AT THIS TIME. PATIENT HAS EYES OPEN AND IS CHATTING WITH VISITORS. CALL LIGHT AND PERSONAL BELONGINGS ARE WITHIN REACH.
--- NOTE | 2025-02-20 11:54 | NUR ---
PATIENT LAYING ON LEFT SIDE WITH TWO PILLOWS BEHIND HER BACK AND ONE BETWEEN HER LEGS. SHE WAS COMPLAINING OF HER BOTTOM AND BACK HURTING. PATIENT BOOSTED/ REPOSITIONED WITH THE HELP OF PRIMARY NURSE, ATIF. PATIENT REPORTS LEGS AND HIPS FEELING ACHY. PATIENT ENCOURAGED TO STAY IN THAT POSITION TO PREVENT SKIN BREAKDOWN AND STIFFNESS. PATIENT EXPRESSED UNDERSTANDING. PATIENT EDUCATED TO PRESS CALL LIGHT ON BED WHEN SHE WAS READY TO BE REPOSITIONED. PATIENT EXPRESSED UNDERSTANDING. PERSONAL BELONGINGS AND TRAY ARE AT THE BEDSIDE.
--- NOTE | 2025-02-20 12:22 | NUR ---
PATIENT RESTING ON THE LEFT SIDE WITH TWO PILLOWS BEHIND BACK. PATIENT HAS EYES CLOSED WITH RESPIRATIONS EVEN AND UNLABORED. BREAKFAST TRAY CLEARED. PERSONAL BELONGINGS AT THE BEDSIDE. CALL LIGHT IS WITHIN REACH.
[2025-02-20 13:13] LABS: ANION GAP 12.3 (7-21); CALCIUM 8.2 mg/dL (8.5-10.1); CREATININE, SERUM 0.68 mg/dL (0.55-1.02); POTASSIUM 4.3 mmol/L (3.5-5.1)
--- NOTE | 2025-02-20 13:15 | NUR ---
PATIENTIS LYING ON HER LEFT SIDE WITH HOB ELEVATED WITH TWO PILLOWS BEHIND BACK. SHE HAS ONE PILLOW BETWEEN HER LEGS. PATIENT HAS EVEN UNLABORED RESPIRATIONS WITH EYES OPEN. PATIENT IS STATING SHE IS STIFF. WE DISCUSSED PT WORKING WITH HER AND PRIMARY NURSE, ATIF, NOTIFIED. CALL LIGHT AND PERSONAL BELONGINGS ARE WITHIN REACH.
--- NOTE | 2025-02-20 13:43 | NUR ---
PATIENT REPOSITIONED TO BACK WITH HOB ELEVATED AND LUNCH TRAY INFRONT OF HER. PATIENT HAS FOUR VISITORS IN THE ROOM CHATTING WITH HER. PATIENT HAS EYES OPEN WITH EVEN AND UNLABORED RESPIRATIONS. PATIENT HAS CALL LIGHT AND PERSONAL BELLONGINGS WITHIN REACH.
--- NOTE | 2025-02-20 14:18 | NUR ---
PATIENT IS LYING IN BED WITH HOB ELEVATED. PATIENT WITH SEVERAL VISITORS IN THE ROOM. PATIENT IS CONVERSING WITH THE VISITORS. CALL LIGHT AND PERSONAL BELONGINGS ARE WITHIN REACH.
--- NOTE | 2025-02-20 15:30 | NUR ---
PATIENT IS LYING IN BED WITH HOB ELEVATED WITH SCDS IN PLACE. FOCUSED ASSESSMENT IS DOCUMENTED IN THE CHART. PATIENT DENIED NUMBNESS, TINGLING, AND PAIN. PATIENT SAID SHE FELT WEAK AND STIFF. IV SITE FLUSHED WITH 10 ML NS. IV SITE FLUSHED WITH NO SIGNS OF INFILTRATION OR LEAKING. PATIENT DENIED BURNING OR PAIN. PATIENT IS ALERT AND ORIENTED TIMES FOUR. PATIENT REPORTED TENDERNESS IN EPIGASTIC AREA WITH PALPATION. ALL FOUR ABDOMINAL QUADRANTS HAVE ACTIVE BOWEL TONES. PATIENT'S ABDOMEN IS NOT DISTENDED OR FIRM. CALL LIGHT AND PERSONAL BELONGINGS ARE WITHIN REACH. PATIENT DENIES FURTHER NEEDS AT THIS TIME.
--- NOTE | 2025-02-20 16:05 | NUR ---
PATIENT WORKING WITH PHYSICAL THERAPY, THIS RN, AND ANA STUDENT NURSE. PATIENT DID WELL WITH NO COMPLAINTS OF PAIN. PATIENT JUST REPORTS BEING WEAK. PATIENT ATTMEPTED TO STAND THREE TIMES. PATIENT IS NOW BACK IN BED AND BEING FLOATED WITH FOUR PILLOWS. PATIENT HOB ELEVATED. PATIENT VISITOR REMAINS IN THE ROOM. PATIENT PROVIDED A WARM BLANKET BY ANA STUDENT NURSE. PATIENT STATED NO FURTHER NEEDS AT THIS TIME. CALL LIGHT AND PERSONAL BELONGINGS ARE WITHIN REACH.
--- NOTE | 2025-02-20 16:50 | NUR ---
PATIENT IS LYING IN BED WITH HOB ELEVATED. PATIENT IS FLOATING WITH PILLOWS ON EACH SIDE. PATIENT'S BP WAS RETAKEN; RESULTS ARE 133/94(105) AND 167/92(111). PATIENT DENIED FURTHER NEEDS AT THIS TIME. CALL LIGHT AND PERSONAL BELONGINGS ARE WITHIN REACH.
--- NOTE | 2025-02-20 17:33 | NUR ---
PATIENT IS LYING IN BED WITH HOB ELEVATED AND TRAY INFRONT OF HER. PATIENT IS FLOATED WITH 2 PILLOWS ON EACH SIDE. PATIENT WAS BOOSTED/REPOSITIONED WITH ASSISTANCE OF PRIMARY NURSE, ATIF. CALL LIGHT AND PERSONAL BELONGINGS ARE WITHIN REACH. VITAL SIGNS TAKEN AND DOCUMENTED IN THE CHART.
--- NOTE | 2025-02-20 18:29 | NUR ---
PATIENT IS SITTING UPRIGHT IN THE BED WITH EYES OPEN AND RESPIRATIONS ARE EVEN AND UNLABORED. PATIENT WITH HER DINNER TRAY SET UP IN FRONT OF HER. CALL LIGHT AND PERSONAL BELONGINGS ARE WITHIN REACH.
--- NOTE | 2025-02-20 19:15 | NUR ---
HOB ELEVATED, ANXIOUS, REASSURED, REPOSITIONED IN BED PER HER REQUETS. STATED COMFORTABLE, CALL LIGHT AT HANDS REACH
--- NOTE | 2025-02-20 19:55 | NUR ---
PT DID NOT USED CALL LIGHT, CALLED FAMILY MEMBER, REPOSITIONED TO COMFORT HER REQUESTS ONCE MORE. HOB ELEVATED. C/O HIP DISCOMFORT, DECLINED PAIN MEDS EARLIER
--- NOTE | 2025-02-20 20:50 | NUR ---
More alert and oriented to all, aware of NPO status after midnight for am surgery, pt talked about how her surgeries have been postponed several times due to abnormal labs and not pooping". Pleasnt and cooperative. On room air, lungs clear dim at bases. hands bilat decreased edema, elevated w pillows. Abd soft, mild distention, EMILY, f/c patent, draining dark yelow urine. pericare and f/c care done. Repositioned again to [facility], hob elevated, FOB elevated , scds in place. call lihgt at hands reach.
--- NOTE | 2025-02-20 23:39 | NUR ---
Resting , eyes closed, no s/sx distress, moves in bed upper body and legs but not hips. on room air. f/c patent. scds in place. NPO after midnight
[2025-02-20] MEDS ORDERED: SODIUM CHLORIDE 0.9% 1,000 ML IV SCH (23:45)
[2025-02-21] VITALS (10 sets, daily range): BP systolic 114–158; BP diastolic 60–99
--- NOTE | 2025-02-21 00:04 | NUR ---
NPO PER ORDERS, IVF STARTED, ALL CARES EXPLAINED, REPOSITIONED.
--- NOTE | 2025-02-21 01:01 | NUR ---
AWAKE, PLAYING WITH PHONE. NO C/O PAIN, NPO FOR AM SURGERY, DOES OWN ORAL CARE. ORAL SWABS AT BEDSID. F/C PATENT. SCDS IN PLACE
--- NOTE | 2025-02-21 02:48 | NUR ---
Pt awake, c/o coccix and back pain, medicated with Tylenol. Has been awake all night c/o insomnia, medicated with Melatonin. took meds with small sips of water. On room air. abd soft, not tender at this time. f/c patent. scads in place. Turned and repositoned
--- NOTE | 2025-02-21 05:05 | NUR ---
Awake, was given Melatonin earlier, not effective, relief from Tylenol staed. on room air. abd soft, no further c/o pain. f/c patent draining clear yellow urine. scds in place. Cooperative with repositioning and vitals. NPO does own oral care. alert and oriented to all, clear speech.
[2025-02-21 05:22] LABS: BASOPHILS 0.8 % (0-2); EOSINOPHILS 2.6 % (0-6); HEMATOCRIT 33.1 % (35.0-50.0); HEMOGLOBIN 11.9 g/dL (12.0-18.0); LYMPHOCYTES 17.5 % (24-44); MCHC 35.9 g/dl (30-36); MCV 100.3 fl (81-99); MONOCYTES 20.4 % (0-12); NEUTROPHILS 58.7 % (39-80); PLATELET COUNT 210 K/uL (140-440); RDW 14.6 (10.5-15.0)
[2025-02-21 05:25] LABS: ANION GAP 12.6 (7-21); BUN/CREATININE RATIO 1.69 (6.0-28.6); CALCIUM 7.9 mg/dL (8.5-10.1); CREATININE, SERUM 0.59 mg/dL (0.55-1.02); MAGNESIUM 1.6 mg/dL (1.8-2.4); POTASSIUM 3.6 mmol/L (3.5-5.1)
[2025-02-21] MEDS ORDERED: MAGNESIUM SULFATE 2 GM/50 ML BAG IV SCH (07:00)
[2025-02-21] MEDS ORDERED: POTASSIUM PHOSPHATE 30 MMOL in DEXTROSE 5% 500 ML IV ONE (07:00)
--- NOTE | 2025-02-21 07:31 | NUR ---
PT RESTING EYES CLOSED AT TIME OF SHIFT REPORT, LEFT UNDISTURBED. BREATHING EVEN AND UNLABORED CALL LIGHT AND NEEDED ITEMS IN REACH. PT REMAINS NPO OFR SURGERY LATER TODAY.
--- NOTE | 2025-02-21 08:55 | NUR ---
VISITED DURING SPIRITUAL CARE ROUNDS. PT APPEARED TO BE SLEEPING. DID NOT DISTURB. PROVIDED PRAYER.
--- NOTE | 2025-02-21 09:08 | NUR ---
PT CONTINUES SLEEPING SOUNDLY AWAKENS TO TOUCH FOR ASSESSMENT AND MEDS. PT DENIES PAIN OR NEEDS OF THEN RETURNS TO SLEEPING SOUNDLY
--- NOTE | 2025-02-21 09:47 | NUR ---
PATIENT IN BED RESTING WITH EYES CLOSED. VITALS AND I&O'S DONE AND CHARTED. RN NOW IN ROOM. CALL LIGHT IN REACH. NO FURTHER NEEDS AT THIS TIME.
--- NOTE | 2025-02-21 10:37 | NUR ---
PT CONTINUES SLEEPING VERY SOUNDLY REVIEWED MEDS GIVEN, PT HAD A RESTLESS NIGHT AND WAS GIVEN MELATONIN AT 0300 SUSPECT THIS IS WHY SHE IS SO SLEEPY
--- NOTE | 2025-02-21 11:06 | NUR ---
INTO SEE PATIENT. PATIENT STILL AGREEABLE TO SNF. FIRST CHOICE [facility]BT. SECOND CHOICE [facility]. WILL SEND CHART NOTES. NO FUTHER CM NEEDS.
--- NOTE | 2025-02-21 11:18 | NUR ---
PT AWAKE FOR THE FIRST THIS SHIFT. ALERT AND COOPERATIVE DENIES NEEDS OR DICOMFORTS. PRE-OP EDUCATION PROVIDED PT DENIES FURTHER QUESTONS. ORAL CARE ITEMS PROVIDED. PT DENIES OTHER NEEDS OF
--- NOTE | 2025-02-21 12:47 | NUR ---
PT SURGERY HAS BEEN POSTPONED, FRESH H20 TO BEDSIDE SHE REFUSES OFFER OF FOOD ITEMS BUT ACCEPTS ENSURE. TYLENOL ADMINISTERED PER HER REQUEST
--- NOTE | 2025-02-21 14:29 | NUR ---
ASSISTED PATIENT TO THE SIDE OF THE BED TO SIT UP AND DRINK SOME OF HER ENSURE. SHE SAT UP FOR A MINUTE WITH HEAVY ASSISTANCE AND PER MY DISCRESION WE GOT HER BACK INTO THE BED. WE POSITIONED HER ONTO HER RIGHT SIDE AND PROPPED HER UP WITH PILLOWS. CALL LIGHT IN REACH. PT DENIES ANY OTHER NEEDS AT THIS TIME.
--- NOTE | 2025-02-21 14:43 | NUR ---
PT SPEAKING ACTIVELY WITH VISITOR AT THIS TIME.
--- NOTE | 2025-02-21 18:10 | NUR ---
PT REFUSES OFFER OF FOOD ITEMS BUT DOES DRINK AN ENSURE AND 1/2 THIS SHIFT. SHE DOES NOT COMPLAIN OF NAUSEA OR PAIN JUST STATES SHE "CAN'T EAT ANYTHING" ASSISTED TO REPOSITION SEVERAL TIMES THIS SHIFT.
--- NOTE | 2025-02-21 18:35 | NUR ---
PATIENT IN BED RESTING AT THIS TIME. I&O'S CHARTED. LOW OUTPUT, RN NOTIFIED. CALL LIGHT IN REACH. NO FURTHER NEEDS AT THIS TIME.
--- NOTE | 2025-02-21 19:10 | NUR ---
REPORT REC'D FROM LORENA BAKER. PT RESTING IN BED AT THIS TIME, NO ACUTED DISTRESS NOTED.
--- NOTE | 2025-02-21 19:42 | NUR ---
PT ASSESSMENT COMPLETED. PT RESTING IN BED, RESPOSITIONED TO RIGHT SIDE. PT ALERT AND ORIENTED X4, PENDING SURGERY AFTER CONSULT IN AM WITH DR. PELLETIER. PT INSTRUCTED SHE WILL BE NPO AFTER MN. HRR, L/S CLEAR, DECREASED IN BASES. IV 20G TO L HAND INFUSING NS @100ML/HR. MILD EDEMA TO BILAT HANDS AND LE. PT DIAPERED, NO SKIN BREAKDOWN NOTED, F/C DRAINING CLEAR YELLOW URINE. SCD IN PLACE TO BLE. BED LOW POSITION, LOCKED. SIDERAILS UP X 2, CALL TREJO IN REACH. PT INSTRUCTED TO CALL FOR ASSISTANCE. PT DENIES PAIN AT THIS TIME.
--- NOTE | 2025-02-21 23:15 | NUR ---
REPORT RECEIVED FROM LORENA ZURITA. PT AWAKE, ON BEDPAN. REMOVED FROM BEDPAN, NEW LINENS PLACED UNDER PT. TOLERATED WELL. KOLB REMOVED FROM BEDSIDE. CALL LIGHT WITHIN REACH; LIGHTS OFF, GLASSES AT BEDSIDE.
[2025-02-22] VITALS (11 sets, daily range): BP systolic 118–177; BP diastolic 67–91
--- NOTE | 2025-02-22 00:38 | NUR ---
ROUNDED ON PT. PT AWAKE, STATES SHE DOESN'T ALWAYS SLEEP WELL. NO NEEDS.
--- NOTE | 2025-02-22 03:50 | NUR ---
rounded on pt. Pt awake, stated that she was slept some.
--- NOTE | 2025-02-22 04:33 | NUR ---
new bag fluids hanging. pt with eyes closed, resp even and unlabored.
[2025-02-22 05:33] LABS: HEMATOCRIT 32.7 % (35.0-50.0); HEMOGLOBIN 11.7 g/dL (12.0-18.0); MCH 36.2 (27-36); MCHC 35.7 g/dl (30-36); MCV 101.5 fl (81-99); PLATELET COUNT 212 K/uL (140-440); RBC 3.22 M/ul (4.3-5.7)
[2025-02-22 05:50] LABS: ANION GAP 5.6 (7-21); BUN/CREATININE RATIO 5.35 (6.0-28.6); CALCIUM 8.2 mg/dL (8.5-10.1); CREATININE, SERUM 0.56 mg/dL (0.55-1.02); PHOSPHORUS, INORGANIC 3.8 mg/dL (2.5-4.9); POTASSIUM 3.6 mmol/L (3.5-5.1)
[2025-02-22 05:56] LABS: BANDS, MANUAL DIFF 2; EOSINOPHILS, MANUAL DIFF 2; LYMPHOCYTES, MANUAL DIFF 25; MONOCYTES, MANUAL DIFF 16; NEUTROPHILS, MANUAL DIFF 55
--- NOTE | 2025-02-22 06:37 | NUR ---
REMOVED PT OFF BEDPAN. UNABLE TO HAVE BM, FEELS LIKE SHE NEEDS TO HAVE ONE. ACTIVE BS.
--- NOTE | 2025-02-22 07:22 | NUR ---
PT SL PER ORDERS
--- NOTE | 2025-02-22 07:50 | NUR ---
PT RESTING EYES CLOSED AT TIME OF SHIFT REPORT, LEFT UNDISTURBED. CALL LIGHT IS IN REACH PT IS NPO UNTIL SURGERY CONSULT
--- NOTE | 2025-02-22 08:54 | NUR ---
PT CONTINUES TO BE DROWSY THIS MORNING SHE WAS YESTERDAY MORNING. ANSWERS QUESTIONS AGREES SHE IS COMFORTABLE. CALL LIGHT IN REACH
--- NOTE | 2025-02-22 09:45 | NUR ---
PT UP ON EDGE OF BED WORKING WITH PT/OT DOING ORAL CARE ETC
--- NOTE | 2025-02-22 10:54 | NUR ---
CATH CARE COMPLETED AND PT REPOSITIONED
--- NOTE | 2025-02-22 11:08 | NUR ---
PT NOT AVAILABLE FOR VISIT. PROVIDED PRAYER.
--- NOTE | 2025-02-22 11:15 | NUR ---
PATIENT ALERT IN BED, FAMILY AT BEDSIDE. INFORMED NO ACCEPTING FACILITY AT THIS TIME. BUT CURRENTLY PLANNING FOR SNF WHEN MEDICALLY CLEARED AND POST OP. FAMILY MEMBER STATES THEY CAN TRANSPORT PATIENT WHEN SHE IS READY TO DC.
--- NOTE | 2025-02-22 12:27 | NUR ---
PT SITTING UP IN BED AFTER COMPANY LEAVES. SHE IS CONVERSIVE AND INTERACTIVE FOR THE FIRST TIME SINCE THIS SUPERVISOR IRRIGATION HAS HAD HER FOR 2 DAYS. SHE HAS ANSWERED QUESTIONS PREVIOUSLY BUT NOT CONVERSIVE. PT STATES SHE FEELS "REALLY GOOD" DENIES PAIN NAUSEA STATING ONLY THAT SHE FEELS SHE NEEDS TO HAVE A GOOD BOWEL MOVEMENT.
--- NOTE | 2025-02-22 12:44 | NUR ---
DR PELLETIER IN TO SEE PT AND DISCUSS HER CASE. PT IS INTERAACTIVE AND ALL QUESTIONS ANSWERED
[2025-02-22] MEDS ORDERED: SODIUM CHLORIDE 0.9% 1,000 ML IV SCH ×2 (13:30→21:30)
--- NOTE | 2025-02-22 13:35 | NUR ---
PT SITTING UP IN BED DRINKING CHICKEN BROTH CLEAR ENSURE AT BEDSIDE
--- NOTE | 2025-02-22 14:53 | NUR ---
HOURLY ROUNDING. PATIENT HAS NO REQUEST AT THIS TIME. SHE WAS GIVEN A CLEARS ENSURE. NO REQUEST FROM PATIENT AT THIS TIME
--- NOTE | 2025-02-22 16:13 | NUR ---
PT HAS A SMALL BM PERIC ARE COMPLETED PT REPOSITIONED.
[2025-02-22 16:31] LABS: ANION GAP 11.3 (7-21); BUN/CREATININE RATIO 5.88 (6.0-28.6); CREATININE, SERUM 0.68 mg/dL (0.55-1.02); POTASSIUM 3.3 mmol/L (3.5-5.1)
--- NOTE | 2025-02-22 18:36 | NUR ---
PT SELF FEED JELLO AND HAS SOME ENSURE THIS EVENING. REFUSES OFFER OF TV OR LIGHT ADJUSTMENT. FRESH H20 TO BEDSIDE DENIES DISCOMFORTS OR NEEDS OF
[2025-02-22] MEDS ORDERED: POTASSIUM CHLORIDE 10 MEQ TABCR PO ONE (19:30)
--- NOTE | 2025-02-22 19:32 | NUR ---
REPORT RECEIVED FROM DAY SHIFT RN. PATIENT RESTING IN BED. DENIES NEEDS AT THIS TIME. CALL LIGHT IN REACH.
[2025-02-22 21:16] LABS: ANION GAP 10.9 (7-21); BUN/CREATININE RATIO 6.45 (6.0-28.6); CALCIUM 8.2 mg/dL (8.5-10.1); CREATININE, SERUM 0.62 mg/dL (0.55-1.02); POTASSIUM 3.9 mmol/L (3.5-5.1)
--- NOTE | 2025-02-22 22:03 | NUR ---
PATIENT REPOSITIONED IN BED. VS OBTAINED AND RECORDED. BED ALARM ON. NEW BAG IV FLUID INFUSING PER ORDER. PATIENT HAS NO FURTHER NEEDS. CALL LIGHT IN REACH.
--- NOTE | 2025-02-22 23:26 | NUR ---
PATIENT RESTING IN BED ON BACK WITH EYES CLOSED. RESPIRATIONS EVEN AND UNLABORED. CALL LIGHT IN REACH.
[2025-02-23] VITALS (10 sets, daily range): BP systolic 103–164; BP diastolic 58–85
--- NOTE | 2025-02-23 01:41 | NUR ---
PATIENT RESTING IN BED, AWAKENS EASILY. PATIENT DENIES NEEDS AT THIS TIME AND STATES THAT SHE IS DOING OK. CALL LIGHT IN REACH. BED ALARM ON.
--- NOTE | 2025-02-23 03:58 | NUR ---
PATIENT RESTING IN BED ON BACK WITH EYES CLOSED. RESPIRATIONS EVEN AND UNLABORED. CALL LIGHT IN REACH.
[2025-02-23 06:17] LABS: EOSINOPHILS 2.9 % (0-6); HEMATOCRIT 32.7 % (35.0-50.0); HEMOGLOBIN 11.6 g/dL (12.0-18.0); MCH 36.1 (27-36); MCHC 35.5 g/dl (30-36); MCV 101.8 fl (81-99); MONOCYTES 17.8 % (0-12); NEUTROPHILS 59.3 % (39-80); PLATELET COUNT 219 K/uL (140-440); RBC 3.21 M/ul (4.3-5.7); RDW 14.6 (10.5-15.0)
[2025-02-23 06:37] LABS: ALBUMIN 2.2 g/dL (3.4-5.0); ALBUMIN/GLOBULIN RATIO 0.65 (1.1-2.4); ANION GAP 10.3 (7-21); BILIRUBIN, TOTAL 0.4 mg/dL (0.2-1.0); CREATININE, SERUM 0.63 mg/dL (0.55-1.02); MAGNESIUM 1.7 mg/dL (1.8-2.4); POTASSIUM 4.3 mmol/L (3.5-5.1); PROTEIN, TOTAL 5.6 g/dL (6.4-8.2)
[2025-02-23 06:44] LABS: BUN/CREATININE RATIO 3.17 (6.0-28.6)
--- NOTE | 2025-02-23 07:00 | NUR ---
REPORT RECEIVED FROM TRANSFER AGENT RN KELLY. PATIENT IS LYING IN BED WITH EYES CLOSED AND RESPIRATIONS ARE EVEN AND UNLABORED. CALL LIGHT AND PERSONAL BELONGINGS ARE WITHIN REACH.
[2025-02-23] MEDS ORDERED: MAGNESIUM SULFATE 2 GM/50 ML BAG IV ONE ×2 (07:45→10:00)
--- NOTE | 2025-02-23 08:50 | NUR ---
PATIENT IS LYING IN BED WITH HOB ELEVATED. PATIENT HAS ONE PILLOW ON EACH SIDE OF HER SHOULDERS. PATIENT HAS IV FLUIDS AND IV MAGNESIUM INFUSING. MORNING MEDICATIONS ADMINISTERED AND SENNOKOT WAS CRUSHED AND GIVEN IN JELLO. PATIENT HAS DIFFICULTIES SWALLOWING MEDICATIONS AND TOOK AROUND 5 MINUTES TO SWALLOW 6 BITES OF JELLO WITH MEDICATION. PATIENT ALERT AND ORIENTED TIMES FOUR, BUT TENDS TO RAMBLE. PATIENT EXPRESSED UNDERSTANDING AND APPROVAL OF ALL MEDICATIONS GIVEN. SHE RATED HER BACK AND BOTTOM PAIN A 3/10. LIDOCAINE PATCH ADMINISTERED. PATIENT HAS CALL LIGHT AND PERSONAL BELONGINGS WITHIN REACH. PATIENT HAS MIRALAX IN JUICE AT THE BEDSIDE. PATIENT DENIES FURTHER NEEDS AT THIS TIME.
--- NOTE | 2025-02-23 09:20 | NUR ---
PATIENT IS LYING IN BED WITH HOB ELEVATED. PATIENT IS IN WITH PHYSICAL THERAPY. THEY COMMUNICATED PLANNING TO GET HER INTO THE CHAIR.
[2025-02-23] MEDS ORDERED: THIAMINE HCL 200 MG/2 ML VIAL IV SCH (10:06)
--- NOTE | 2025-02-23 10:50 | NUR ---
PATIENT IS IN CHAIR WITH BLE ELEVATED. PATIENT ASSESSMENT COMPLETED AND DOCUMENTED. PATIENT IS DISORIENTED TO ONLY TIME AND HAS GARBLED/RAMBLING SPEECH. PATIENT HAS CLEAR LUNG SOUNDS IN UPPER LOBES AND IS DIMINISHED IN THE BASED. PATIENT HAS S1 & S2 SOUNDS WITH A REULAR HEART RATE. PATIENT HAS CAPILLARY REFILL LESS THAN 3 SECONDS IN ALL EXTREMITIES. PATIENT REPORTS TINGLING IN UPPER EXTREMITIES AND PAIN WITH PASSIVE STRETCHING IN THE RLE DUE TO STIFFNESS. PATIENT HAS ACTIVE BOWEL TONES IN ALL FOUR QUADRANTS AND TENDERNESS WITH PALPATION IN LLQ. PATIENT'S LAST BOWEL WAS 02/22/2025. PATIENT'S IV SITE WAS ASSESSED AND IV FLUIDS ARE INFUSING AT THIS TIME. PATIENT DENIED BURING OR PAIN WITH INFUSION. NO LEAKING OR INFILTRATION WAS NOTED AT THIS TIME. PATIENT DENIES PAIN AT THIS TIME. PATIENT REPORTS HAVING WEAKNESS THROUGHOUT. PATIENT HAS LIMITED APPETITE. PATIENT CONTINUES TO HAVE 16 [address] TALAVERA CATHETER IN PLACE. PATIENT HAD CATHETER PLACED ON 02/17/2025 BY THIS STUDENT NURSE. TALAVERA CARE AND MARLEE CARE PERFORMED AT THIS TIME. CALL LIGHT AND PERSONAL BELONGINGS ARE WITHIN REACH.
--- NOTE | 2025-02-23 11:18 | NUR ---
PATIENT IS SITTING IN THE CHAIR WITH BILATERAL LOWER EXTREMITIES ELEVATED. PATIENT WITH EYES OPEN AND RESPIRATIONS ARE EVEN AND UNLABORED. PATIENT IS SPEAKING WITH A VISITOR WHO IS SITTING ON THE BED. CALL LIGHT AND PERSONAL BELONGINGS ARE WITHIN REACH.
--- NOTE | 2025-02-23 12:01 | NUR ---
PATIENT IS SITTING IN THE CHAIR WITH BILATERAL LOWER EXTREMITIES ELEVATED. PATIENT IS ONLY ABLE TO STATE THE MONTH WHEN ASKED ABOUT HER DAITE OF . 1000 THIAMINE HCL ADMINISTERED PER THE EMAR. PATIENT WITH TWO VISITORS IN THE ROOM AT THIS TIME AND SPEAKING TO THE PATIENT. NS IS INFUSING AT 100 ML/HR. IV DRESSING IS CLEAN, DRY, AND INTACT. PATIENT STATED NO FURTHER NEEDS AT THIS TIME. CALL LIGHT AND PERSONAL BELONGINGS ARE WITHIN REACH.
--- NOTE | 2025-02-23 12:15 | NUR ---
, THIS RN, PATIENT NIECE, AND ANA, STUDENT NURSE MET AT THIS TIME TO DISCUSS PATIENT STATUS. PATIENT FAMILY MEBER QUESTIONS AND CONCERNS ADDRESSED. STATED HE WOULD BE BACK IN A FEW MINUTES TO ASSESS THE PATIENT.
--- NOTE | 2025-02-23 13:22 | NUR ---
UPDATED CLINICALS, PT/OT NOTES, MED LIST FAXED TO [facility].
--- NOTE | 2025-02-23 13:24 | NUR ---
PATIENT IS LYING IN BED WITH HOB ELEVATED. PATIENT HAS EYES OPEN WITH EVEN AND UNLABORED RESPIRATIONS. PATIENT HAS CALL LIGHT AND PERSONAL BELONGINGS WITHIN REACH.
--- NOTE | 2025-02-23 13:58 | NUR ---
PT NOT AVAILABLE FOR VISIT. PROVIDED PRAYER.
[2025-02-23 14:31] LABS: ANION GAP 10.7 (7-21); BUN/CREATININE RATIO 4.61 (6.0-28.6); CALCIUM 8.1 mg/dL (8.5-10.1); CREATININE, SERUM 0.65 mg/dL (0.55-1.02); POTASSIUM 3.7 mmol/L (3.5-5.1)
--- NOTE | 2025-02-23 14:50 | NUR ---
Spoke with Aleja. Plan is for surgery tomorrow. Nephew and are staying with her spouse that has dementia. She denies any needs. If needed, plans on dc to [facility] on dc. Would prefer to go home, but states she will go where she needs too on dc.
--- NOTE | 2025-02-23 15:08 | NUR ---
PATIENT IS LYING IN BED WITH HOB ELEVATED AND SCDs IN PLACE. PATIENT'S FOCUSED ASSESSMENTS COMPLETED AND IN THE CHART. PATIENT DENIES PAIN AT THIS TIME. PATIENT HAS IV FLUIDS INFUSING AT THIS TIME WITH NO NOTED LEAKING OR INFILTRATION. PATIENT DENIES BURNING OR PAIN WITH IV INFUSION. PATIENT IS ALERT AND ORIENTED TIMES FOUR. PATIENT CONTINUES TO HAVE GARBLED SPEECH. PATIENT HAS LOWER QUADRANT TENDERNESS IN ABDOMEN. PATIENT HAS ACTIVE BOWEL TONES THROUGHOUT. PATIENT IS REPORTING NO NAUSEA, HER LAST BM WAS 02/22/25. PATIENT HAS CALL LIGHT AND PERSONAL BELONGINGS INTACT.
--- NOTE | 2025-02-23 15:37 | NUR ---
BED BATH GIVEN. PATIENT'S SOCKS, GOWN, AND LINENS WERE CHANGED. CATHETER CARE PERFORMED. PATIENT BRUSHED THEIR TEETH WITH MAX ASSIST.
--- NOTE | 2025-02-23 16:02 | NUR ---
PATIENT IS LYING IN BED WITH HOB ELEVATED. PATIENT HAS BED ALARM ON. PATIENT HAS EVEN UNLABORED RESPIRATIONS WITH EYES CLOSED. PATIENT HAS CALL LIGHT AND PERSONAL BELONGINGS WITHIN REACH.
--- NOTE | 2025-02-23 17:45 | NUR ---
PATIENT IS LYING IN BED WITH HOB ELEVATED AND TRAY INFRONT OF HER. PATIENT HAS IV FLUIDS CONTINUING TO INFUSE. PATIENT ENCOURAGED TO FINISH MIRALAX AND EAT HER DINNER. PATIENT EXPRESSED UNDERSTANDING. PATIENT HAS TV ON AT THIS TIME. CALL LIGHT AND PERSONAL BELONGINGS ARE WITHIN REACH.
--- NOTE | 2025-02-23 18:06 | NUR ---
NEW BAG OF NORMAL SALINE IS INFUSING AT THIS TIME. PATIENT IS LYING IN BED WITH HOB ELEVATED. PATIENT IS WORKING ON DINNER. PATIENT REPORTS NEEDING TO USE THE BATHROOM SOON. BEAU OCBB IS IN THE ROOM AT THIS TIME AND GETTING INTAKE AND OUTPUT VALUES AT THIS TIME. PATIENT STATED NO FURTHER NEEDS AT THIS TIME. CALL LIGHT AND PERSONAL BELONGINGS ARE WITHIN REACH.
--- NOTE | 2025-02-23 18:25 | NUR ---
PATIENT IS CURRENTLY SITTING UP IN BED FINISHING THEIR CLEAR LIQUID DINNER. LORENA SRIVASTAVA AND STUDENT NURSE ANA IN THE ROOM.
--- NOTE | 2025-02-23 19:30 | NUR ---
REPORT RECEIVED FROM DAY SHIFT RN. PATIENT RESTING IN BED. RESPIRATIONS EVEN AND UNLABORED. CALL LIGHT IN REACH.
[2025-02-23 20:06] LABS: ANION GAP 9.8 (7-21); BUN/CREATININE RATIO 3.44 (6.0-28.6); CREATININE, SERUM 0.58 mg/dL (0.55-1.02); POTASSIUM 3.8 mmol/L (3.5-5.1)
--- NOTE | 2025-02-23 20:18 | NUR ---
LOCK AND DAM EQUIPMENT REPAIRER OBTAINED VITALS AND I&O. TALAVERA EMPTIED. PT STATES NO NEEDS AT THIS TIME. CALL LIGHT WITHIN REACH AND BED ALARM ON.
--- NOTE | 2025-02-23 20:35 | NUR ---
PATIENT RESTING IN BED. PATIENT REFUSING BOWEL MEDICATIONS. TALAVERA CATH CARE PROVIDED PER PROTOCOL. ASSESSMENT COMPLETE. PATIENT DENIES PAIN. BED ALARM ON. CALL LIGHT IN REACH.
--- NOTE | 2025-02-23 21:59 | NUR ---
PATIENT RESTING IN BED. PRN SLEEP MEDICATION AND PAIN MEDICATION FOR 5/10 LOW BACK PAIN ADMINISTERED. PATIENT REPOSTIONED IN BED. SCDs IN PLACE. PATIENT HAS NO FURTHER NEEDS. BED ALARM ON. CALL LIGHT IN REACH.
[2025-02-24] VITALS (11 sets, daily range): BP systolic 146–170; BP diastolic 74–93
--- NOTE | 2025-02-24 00:05 | NUR ---
PATIENT NPO AT THIS TIME.
--- NOTE | 2025-02-24 00:07 | NUR ---
PATIENT RESTING IN BED ON BACK WITH EYES CLOSED. RESPIRATIONS EVEN AND UNLABORED. CALL LIGHT IN REACH.
--- NOTE | 2025-02-24 02:41 | NUR ---
PATIENT RESTING IN BED WITH EYES CLOSED. RESPIRATIONS EVEN AND UNLABORED. CALL LIGHT IN REACH. BED ALARM ON.
--- NOTE | 2025-02-24 04:13 | NUR ---
PATIENT RESTING IN BED. RESPIRATIONS EVEN AND UNLABORED. CALL LIGHT IN REACH. BED ALARM ON.
[2025-02-24 05:46] LABS: BASOPHILS 1.2 % (0-2); EOSINOPHILS 3.8 % (0-6); HEMATOCRIT 32.1 % (35.0-50.0); HEMOGLOBIN 11.3 g/dL (12.0-18.0); LYMPHOCYTES 20.2 % (24-44); MCH 35.9 (27-36); MCHC 35.1 g/dl (30-36); MCV 102.1 fl (81-99); MONOCYTES 15.6 % (0-12); NEUTROPHILS 59.2 % (39-80); PLATELET COUNT 228 K/uL (140-440); RBC 3.15 M/ul (4.3-5.7); RDW 15.1 (10.5-15.0)
--- NOTE | 2025-02-24 06:02 | NUR ---
THIS YEAST PUMPER AND PRIMARY RN KELLY OBTAINED VITALS AND I&O. TALAVERA EMTPIED. YEAST PUMPER AND RN COMPLETED SURGICAL [place]. PT BED LINENS, CHUCKS PAD AND GOWN CHANGED. PT STATES NO FURTHER NEEDS AT THIS TIME. CALL LIGHT WITHIN REACH.
[2025-02-24 06:04] LABS: ALBUMIN 2.2 g/dL (3.4-5.0); ALBUMIN/GLOBULIN RATIO 0.65 (1.1-2.4); ANION GAP 12.8 (7-21); BILIRUBIN, TOTAL 0.3 mg/dL (0.2-1.0); BUN/CREATININE RATIO 1.78 (6.0-28.6); CALCIUM 7.9 mg/dL (8.5-10.1); CREATININE, SERUM 0.56 mg/dL (0.55-1.02); POTASSIUM 3.8 mmol/L (3.5-5.1); PROTEIN, TOTAL 5.6 g/dL (6.4-8.2)
[2025-02-24] MEDS ORDERED: CEFAZOLIN SODIUM 2 GM/20 ML SYR IV SCH (07:00)
--- NOTE | 2025-02-24 07:14 | NUR ---
REPORT RECEIVED FROM LORENA MENDOZA. PATIENT IS RESTING IN BED, AWAKE AND ALERT WATCHING TELEVISION. NO REQUESTS, CALL LIGHT AND PERSONAL BELONGINGS IN REACH.
[2025-02-24] MEDS ORDERED: propofoL 200 MG/20 ML VIAL ONE (08:05)
[2025-02-24] MEDS ORDERED: ROCURONIUM BROMIDE 50 MG/5 ML SYR ONE (08:06)
[2025-02-24] MEDS ORDERED: KETOROLAC TROMETHAMINE 30 MG/ML VIAL ONE (08:06)
[2025-02-24] MEDS ORDERED: LIDOCAINE HCL 2% 5 ML SDV ONE (08:06)
[2025-02-24] MEDS ORDERED: ondansetron HCL 4 MG/2 ML VIAL ONE (08:06)
[2025-02-24] MEDS ORDERED: DEXAMETHASONE SOD PHOS 4 MG/ML VIAL ONE (08:06)
[2025-02-24] MEDS ORDERED: SUGAMMADEX SODIUM 200 MG/2 ML ML ONE (08:06)
[2025-02-24] MEDS ORDERED: fentaNYL citrate 100 MCG/2 ML VIAL ONE ×2 (08:07→09:57)
--- NOTE | 2025-02-24 08:08 | NUR ---
FEEDER CATCHER TOBACCO IN SPEAKING WITH PATIENT AT THIS TIME. PATIENT REPOSITIONED TO HER LEFT SIDE AFTER COMPLAINING OF BUTTOCK PAIN FROM THE BED. FEEDER CATCHER TOBACCO REMAINS IN ROOM AT THIS TIME.
--- NOTE | 2025-02-24 08:15 | NUR ---
SURGERY TAKES PATIENT TO SURGICAL FLOOR. PATIENT IS OFF THE FLOOR AT THIS TIME.
[2025-02-24] MEDS ORDERED: iopamidoL 30 ML VIAL ONE (08:34)
[2025-02-24] MEDS ORDERED: SODIUM CHLORIDE 0.9% 60 ML IV ONE (08:35)
[2025-02-24] MEDS ORDERED: IBLOOD GLUCOSE TEST STRIP 1 EA TEST VI PRN (09:00)
[2025-02-24] MEDS ORDERED: fentaNYL citrate 50 MCG/ML SDV IV PRN (09:00)
[2025-02-24] MEDS ORDERED: ondansetron HCL 4 MG/2 ML VIAL IV PRN (09:00)
[2025-02-24] MEDS ORDERED: NALOXONE HCL 0.4 MG SYR IV PRN (09:00)
[2025-02-24] MEDS ORDERED: ePHEDrine sulfate 50 MG/ML AMP ONE (09:15)
[2025-02-24] MEDS ORDERED: ACETAMINOPHEN 1,000 MG/100 ML VIAL ONE (09:16)
--- NOTE | 2025-02-24 09:41 | NUR ---
PATIENT REMAINS OFF THE FLOOR AT THIS TIME.
[2025-02-24] MEDS ORDERED: ESMOLOL HCL 100 MG/10 ML VIAL IV ONE (09:57)
[2025-02-24] MEDS ORDERED: SODIUM CHLORIDE 0.9% 20 ML IV ONE (09:58)
[2025-02-24] MEDS ORDERED: LACTATED RINGER'S 1,000 ML IV ONE (10:16)
--- NOTE | 2025-02-24 10:35 | NUR ---
02/24/25 1035 Teresa Kam 1022- PT PRESENTS TO PACU, SUPINE POSITION. OPA IN PLACE, O2 AT 6L PER MASK, BREATHING EVEN AND NON LABORED. LR INFUSING TO RFA IV. ABD SOFT, NON DISTENDED. 4 LAP SITES- 1 UPPER MID LINE ABD, 2 RUQ, AND 1 UMBILICUS WITH STERI STRIPS IN PLACE. TALAVERA CATHETER DRAINING DILUTE YELLOW URINE. ALL MONITORS IN PLACE. 1030- PT REMAINS NON REACTIVE TO STIMULUS, BREATHING EVEN AND NON LABORED.
--- NOTE | 2025-02-24 11:13 | NUR ---
PATIENT RETURNS FROM SURGERY. REPORT RECEIVED FROM LORENA MAC. PATIENT IS IN BED AWAKE AND ALERT. VS OBTAINED BY LORENA CASTANEDA. STUDENT NURSE SARA ALSO PRESENT. THIS RN REMAINS IN THE ROOM AT THIS TIME.
--- NOTE | 2025-02-24 11:29 | NUR ---
PATIENT RESTING IN BED, ASSESSMENT COMPLETE. PATIENT IS DROWSY AND NOT FULLY ALERT AND ORIENTED AT THIS TIME. SHE IS SPEAKING OF HER SON. PATIENT HAS 4 LAP SITES TO HER ABDOMEN, 2 TO RLQ ARE CLEAN, DRY AND INTACT WITH STERI-STRIPS IN PLACE. 2 TO MIDLINE AND UMBILICUS ARE INTACT WITH SCANT AMOUNT OF BLOODY DRAINAGE NOTED. PATIENT DENIES PAIN OR NAUSEA. ABDOMINAL SOUNDS ARE ACTIVE IN ALL QUADRANTS, PATIENT DENIES TENDERNESS WHEN PALPATED. LUNG SOUNDS ARE CLEAR IN BUL, DIMINISHED IN BLL. PATIENT TAKES A SIP OF WATER AND TOLERATES THIS WELL, NO COUGHING NOTED. PATIENT HAS OCCASIONAL COUGH RN ESTEFANIA NOTED AFTER WAKING UP FROM SURGERY. PATIENT CONTINUES TO HAVE OCCASIONAL COUGH WITHOUT PRODUCTION, NOT EXACERBATED BY TAKING A DRINK. CPOX IN PLACE, SCDs IN PLACE. PATIENT HAS NO REQUESTS AT THIS TIME. CALL LIGHT AND PERSONAL BELONGINGS IN REACH.
--- NOTE | 2025-02-24 12:52 | NUR ---
PATIENT HAS MULTIPLE VISITORS PRESENT AT THIS TIME. NO REQUESTS, CALL LIGHT AND PERSONAL BELONGINGS IN REACH.
--- NOTE | 2025-02-24 13:40 | NUR ---
Spoke with Aleja. She states she is feeling better. Pt is a little woozy following surgery. She cont. to plan on admit to SNF on dc as she feels this would be best. I received a call from Hanny at [facility] and they will accept this pt tomorrow or Friday. Let her know pt recently returned from surgery and I am not sure of when pt will be able to dc. I will call her in the am.
[2025-02-24] MEDS ORDERED: PANTOPRAZOLE SODIUM 40 MG/10 ML VIAL ONE (13:46)
[2025-02-24] MEDS ORDERED: SEVOFLURANE 250 ML BTL INH ONE (14:11)
--- NOTE | 2025-02-24 14:17 | NUR ---
MEDICATION ADMINISTERED, SEE MAR. PATIENT REPOSITIONED IN BED WITH BEAU ROLON. PATIENT MENTATION IS CLEARING FROM RETURN FROM SURGERY. PATIENT NOW CORRECTLY STATES PLACE AND EVENT, STILL UNSURE OF DATE, BUT MORE COMPLETE AND SENSICLE SENTENCES. PATIENT HAS BEEN DRINKING WATER AND BROTH, AGREEABLE TO TRYING APPLESAUCE AT THIS TIME. PATIENT ASSISTED TO CHANGE HER GOWN, BOWEL SOUNDS ACTIVE IN ALL QUADRANTS, ABDOMEN IS NON-TENDER TO PALPATION AND PATIENT DENIES PAIN OR NAUSEA. HER ABDOMEN IS MILDLY DISTENDED. IV TO R AC FLUSHES WNL, INFUSING NS AT 75ML/HR AT THIS TIME. TALAVERA CATH DRAINING FREELY YELLOW, DILUTE URINE TO BEDSIDE. CPOX IN PLACE. SCDs IN PLACE. HEELS FLOATED. PATIENT HAS NO REQUESTS OR CONCERNS, CALL LIGHT AND PERSONAL BELONGINGS IN REACH.
--- NOTE | 2025-02-24 15:00 | NUR ---
NUTRITION FOLLOW-UP NOTE: Patient finally had a lap choley today. She has been on clear liquids with Ensure all week as the surgery kept being postponed. Regular diet in place. Will add Ensure Plus HP to breakfast and dinner trays starting tomorrow to provide additional calories and protein. Patient remains at moderate nutrition risk due to poor intake for the past [address] will follow up in 5 days to assess intake and Ensure acceptance.
--- NOTE | 2025-02-24 15:22 | OR ---
[facility] [address], [place] [address] Signed DATE OF OPERATION: 02/24/2025 SURGEON: Caroline Pelletier MD PREOPERATIVE DIAGNOSIS: Chronic acalculous cholecystitis with intractable nausea and postprandial bloating. POSTOPERATIVE DIAGNOSIS: Chronic acalculous cholecystitis with intractable nausea and postprandial bloating. PROCEDURES: 1. Laparoscopic cholecystectomy with intraoperative cholangiogram. 2. Surgeon-directed fluoroscopy. ANESTHESIA: General endotracheal; Julissa Ortizerson BUSINESS SPECIALIST and local 10 mL of 0.25% Marcaine with epinephrine. INDICATION: This 69-year-old white woman was admitted to the hospital by the hospitalist service on 02/16/2025 with progressive weakness, nausea, vomiting, and intolerance of oral intake. Imaging studies of the abdomen were undertaken and she was referred from the radiology department to the emergency room for her generalized failure to thrive. She was admitted by Dr. Rutledge confirming the lack of appetite for the preceding month. She felt sick to her stomach whenever she sees food or food is brought to her. She does have what I believe to be the early signs of dementia as well. She was found to be hyponatremic, hypochloremic with other electrolyte abnormalities as well. She did undergo a gallbladder ultrasound which confirms sludge and a small stone. She does affirm pain in the right upper abdomen after eating. She has been variably fluid resuscitated and electrolytes corrected particularly her hyponatremia, is now to undergo cholecystectomy preferred by laparoscopic approach. The risk of bleeding, infection, bile duct injury, and most importantly failure to improve her situation for eating has all been reviewed. She understands and wished to proceed. FINDINGS: The gallbladder was chronically inflamed. There were omental adhesions to the undersurface of the gallbladder, which were mobilized well. Within the gallbladder and the cystic duct was a considerable amount of thick sludge and one single gallstone in the gallbladder itself. The cholangiogram was normal. The liver was reasonably normal. Electronically Signed By: CAROLINE PELLETIER MD 02/24/25 1522 PATIENT NAME: HERNANDO MURPHY OPERATIVE REPORT DATE OF : 51 REPORT #: [id number] PHYSICIAN: CAROLINE PELLETIER MD PCP: BOWEN EASON DO REPORT IS CONFIDENTIAL AND NOT TO BE RELEASED WITHOUT AUTHORIZATION [facility] [address], [place] [address] Signed There were no other findings of note. DESCRIPTION OF PROCEDURE: The patient was brought to the operating room, given a general endotracheal anesthetic. Preoperative antibiotic Ancef was given. Sequential compression device stockings were used. Heparin subcutaneously administered. The abdomen was prepared with a chlorhexidine solution and draped sterilely. Since she had an infraumbilical midline incision, the supraumbilical incision was made and using an open Robin cannula technique pneumoperitoneum was achieved to a level of 14 mmHg of carbon dioxide gas. Intra-abdominal inspection showed no sign of ascites or carcinomatosis. The liver did not appear fatty infiltrated. The gallbladder was moderately distended, chronically inflamed and densely adhered to omental adhesions. Three additional trocars were placed in usual configuration in the subxiphoid, right midclavicular, and right anterior axillary line. Gallbladder was elevated cephalad. Omental adhesions taken down with both blunt and sharp dissection. Clips were applied to omental portions as necessary. Ultimately, the gallbladder was elevated more fully. The gallbladder was retracted laterally and using blunt and electrocautery dissection the triangle of Calot was dissected free identifying well the cystic artery and cystic duct. Cystic arterial branches were clipped and a clip was applied across gallbladder cystic duct junction and a transverse choledochotomy made in the cystic duct. Egress of thick bilious sludge was noted. Retrograde milking of the cystic duct ultimately showed clear bile. Using an White type cholangiocatheter intraoperative cholangiography was undertaken showing free flow of contrast in biliary tree with prompt emptying into the duodenum. There was no evidence of filling defect. The duct was not dilated and there was no sign of biliary anomaly. Catheter was removed and the cystic duct was triply clipped and divided. Gallbladder dissected free in a retrograde fashion using electrocautery. Not mentioned previously was a small rent in the gallbladder at the outset of the operation, which was secured with an Endoloop. Gallbladder was placed in an endobag and extracted through the supraumbilical port, opened on the back table, affirmed to have thick sludge and one tiny stone. There was no sign of malignancy. Irrigation was undertaken with subhepatic space. There was no sign of bile leak, bleeding or other problems. The trocars removed under direct visualization showing no sign of bleeding. Supraumbilical fascial incision was reapproximated with interrupted 0 Vicryl suture. All wounds were copiously irrigated with saline solution. Skin closed with interrupted 3-0 Vicryl. Steri-Strips were applied. She had also 10 mL of 0.25% Marcaine with epinephrine injected locally. She was extubated and taken to the recovery room in good condition having suffered no complication. Sponge, needle, and instrument counts reported as correct x3. Electronically Signed By: CAROLINE PELLETIER MD 02/24/25 1522 PATIENT NAME: HERNANDO MURPHY OPERATIVE REPORT DATE OF : 51 REPORT #: [id number] PHYSICIAN: CAROLINE PELLETIER MD PCP: BOWEN EASON DO REPORT IS CONFIDENTIAL AND NOT TO BE RELEASED WITHOUT AUTHORIZATION [address] [place] [address] Signed MD NEERAJ Perla/MARIO /[id number] cc: DO Dr. Beau Campa Copies: BOWEN EASON DO ~ Electronically Signed By: CAROLINE PELLETIER MD 02/24/25 1522 PATIENT NAME: HERNANDO MURPHY OPERATIVE REPORT DATE OF : 51 REPORT #: [id number] PHYSICIAN: CAROLINE PELLETIER MD PCP: BOWEN EASON DO REPORT IS CONFIDENTIAL AND NOT TO BE RELEASED WITHOUT AUTHORIZATION
--- NOTE | 2025-02-24 15:22 | CONS ---
[facility] [address] [place], [place] [address] Signed DATE OF CONSULTATION: 02/22/2025 REQUESTING PHYSICIAN: Dr. Greenfield. ISSUE: Probable chronic calculous cholecystitis. HISTORY OF PRESENT ILLNESS: This 69-year-old white woman is well known to me from the past. She has been followed up for upper endoscopy for gastroesophageal reflux and known Perrin's esophagus. She was admitted on February [address] Rutledge, hospitalist, following her presentation to the emergency room having had pneumonia probably two months previously on December 04 or so. She was treated with antibiotics as an outpatient. The patient has had persistent nausea and vomiting, progressive weakness and weight loss to some degree. An outpatient workup for symptoms was undertaken and she underwent MRI of the abdomen with Valium sedation and was transferred from the imaging department to the emergency room for "failure to thrive." Evaluation by Dr. Rutledge confirmed that she had had lack of appetite for the preceding month. She felt sick to her stomach whenever she sees food or food is brought near her. She is known to have reflux as previously described and Perrin's esophagus, which I have followed and showing no sign of dysplasia or progression. The patient is considered to have underlying depression as [place] in the recent past according to family members. She had a prescription for an antidepressant, which was discontinued as she had persistent nausea and vomiting, which was attributed to the medication. At the time of admission, she was hyponatremic and hypochloremic. Sodium 125, potassium 2.9, creatinine 1.0 with normal liver enzymes. Her creatinine was normal at 1.0. Liver enzymes were normal. Her white count was only 6.7, hematocrit was 40.4, platelets 227,000. Urinalysis was normal. I was called by Dr. Rutledge though I was out of town at a surgical meeting. I recommended a gallbladder ultrasound be performed. A gallbladder ultrasound was performed in fact, which showed sludge and a possible small stone in infundibulum of the gallbladder. Other imaging she has had including on February [address] scan of the chest, which showed airspace opacity in the periphery of the left upper lobe, 14 mm in size, not changed from prior CT and a ground-glass density opacity in the right upper lobe 16.9 mm. Recommendations were for repeat CT scan at 6 months (enhanced). Consultation was undertaken by the locum surgeon, Dr. Mayorga, who did establish a good rapport with the patient and family and had recommended consideration of Electronically Signed By: CAROLINE PELLETIER MD 02/24/25 1522 PATIENT NAME: HERNANDO MURPHY CONSULTATION DATE OF : 51 REPORT #: [id number] PHYSICIAN: CAROLINE PELLETIER MD PCP: BOWEN EASON DO REPORT IS CONFIDENTIAL AND NOT TO BE RELEASED WITHOUT AUTHORIZATION [address] [id number] Signed cholecystectomy. The patient had some mental status changes over the weekend for which the operation was delayed. A plan for surgery was outlined for yesterday, but the family changed their mind and withdrew consent for operation to be yesterday and on that basis, I am consulted now. At present, the patient is reasonably lucid and communicates well, although she has a very rudimentary recollection of the events that has happened over the past several months. She does not have abdominal pain at this time, but she feels "thirsty." Nurse in [facility] (Karina Mcnally RN) notes the patient is n.p.o., but also with no infusion of IV fluids at this time. PHYSICAL EXAMINATION: GENERAL: A pleasant, white woman who does not appear to be toxic at this time. VITAL SIGNS: Show a temperature of 97.3, a pulse of 79, blood pressure 118/81. HEENT: Mucous membranes are quite dry. Trachea is midline. CHEST: Shows diminished respiratory excursion, but no wheeze or rhonchi. HEART: Regular. ABDOMEN: Nondistended. Palpation throughout shows no focal tenderness or mass. EXTREMITIES: Show no clubbing, cyanosis, or edema. LABORATORY STUDIES: Today show a white count of 3.6, hematocrit 32.7, platelets 212. Chem profile shows today sodium of 127, yesterday 133, potassium 33.6 yesterday also 3.6, creatinine is 0.56. Lactic acid at presentation was only 1.8. Her liver enzymes have not been obtained since admission on February 16 alkaline phosphatase was 87, on February 17. I reviewed her imaging studies including abdominal ultrasound and the attendant report. My review of the ultrasound shows a reasonably normal liver. The gallbladder itself is somewhat irregular in shape, and not particularly distended. There appears to be some sludge in the infundibulum of gallbladder and some hyperechoic densities in the infundibulum, possibly a stone material. There is not extensive shadowing to my exam of the images. The gallbladder wall is thickened. ASSESSMENT: The patient has had pneumonia and a dwindling health picture ever since that time in early December. Most recently, difficulty with oral intake and essentially anything she is presented to eat is repulsive to her. The gallbladder findings are significant and likely a contributing cause to her underlying problem. Certainly the cachexia of her general decline in health is a possibility. However, I would agree that cholecystectomy would likely be beneficial to her. It cannot be guaranteed, nor will it solve all of her problems. A safe anesthesia would generally include corrected electrolytes; her sodium yesterday was 133, today 125. She should have intravenous fluids running when n.p.o. and we have rectified that situation. She is currently on normal saline. I will review with Electronically Signed By: CAROLINE PELLETIER MD 02/24/25 1522 PATIENT NAME: HERNANDO MURPHY CONSULTATION DATE OF : 51 REPORT #: [id number] PHYSICIAN: CAROLINE PELLETIER MD PCP: BOWEN EASON DO REPORT IS CONFIDENTIAL AND NOT TO BE RELEASED WITHOUT AUTHORIZATION [address] [address] Signed Gin, her current hospitalist, a plan of management to include electrolyte resuscitation as well as fluid administration as needed anticipating cholecystectomy thereafter. Of note, the patient has had some nutritional support with Ensure, which she says she has tolerated well. MD NEERAJ Perla/MARIO /[id number] cc: DO Beau Philip DO Hao Phung, MD Copies: BOWEN EASON DO ~ Electronically Signed By: CAROLINE PELLETIER MD 02/24/25 1522 PATIENT NAME: HERNANDO MURPHY CONSULTATION DATE OF : 51 REPORT #: [id number] PHYSICIAN: CAROLINE PELLETIER MD PCP: BOWEN EASON DO REPORT IS CONFIDENTIAL AND NOT TO BE RELEASED WITHOUT AUTHORIZATION
--- NOTE | 2025-02-24 15:30 | NUR ---
Notified by Dr. Charles pt will most likely be ready for dc tomorrow. He discussed with Dr. Novak. Darrick, coworker, called and left a message with Hanny. I will fu in the am.
--- NOTE | 2025-02-24 16:27 | NUR ---
PATIENT FAMILY MEMBERS PRESENT IN ROOM, UPDATED ON PATIENT'S STATUS PER PATIENT'S REQUEST. ALL QUESTIONS AND CONCERNS ANSWERED AND ADDRESSED. NO OTHER REQUESTS. PATIENT IS RESTING IN BED, REMAINS INTERESTED IN GETTING UP FOR DINNER TONIGHT. CALL LIGHT AND PERSONAL BELONGINGS IN REACH. LAB ARRIVES TO SEE PATIENT.
[2025-02-24 16:46] LABS: ANION GAP 12.9 (7-21); BUN/CREATININE RATIO 3.77 (6.0-28.6); CALCIUM 8.3 mg/dL (8.5-10.1); CREATININE, SERUM 0.53 mg/dL (0.55-1.02); POTASSIUM 3.9 mmol/L (3.5-5.1)
--- NOTE | 2025-02-24 17:23 | NUR ---
PATIENT IS IN BED WITH HOB ELEVATED SLOWLY WORKING ON DINNER. IVF INCREASED TO 100ML/HR ORDERED. PATIENT HAS MULTIPLE VISITORS PRESENT AT THIS TIME. ENCOURAGED TO CONTINUE EATING. NO REQUESTS, CALL LIGHT AND PERSONAL BELONGINGS IN REACH.
--- NOTE | 2025-02-24 17:43 | NUR ---
Spoke with pts family, Cornelia. She is requesting pt be able to stay through Friday. UPdated, [facility] agreed to take her tomorrow or Friday. This will be up to the Drs. when she is discharged. Cornelia plans on driving Aleja. Will Fu with Dr. Charles in the morning.
--- NOTE | 2025-02-24 18:45 | NUR ---
PATIENT IN BED AT THIS TIME. THIS MANAGER PRESENTATION CHARTED VITALS AND I&O'S. THIS MANAGER PRESENTATION ALSO PROVIDED PATIENT WITH CATHETER CARE. CALL LIGHT WITHIN REACH, NO FURTHER NEEDS AT THIS TIME.
--- NOTE | 2025-02-24 19:43 | NUR ---
REPORT RECEIVED FROM DAY SHIFT RN. PATIENT RESTING IN BED. DENIES NEEDS AT THIS TIME. BED ALARM SET. CALL LIGHT IN REACH.
--- NOTE | 2025-02-24 21:22 | NUR ---
PATIENT RESTING IN BED. VS AND I&Os OBTAINED AND RECORDED. PATIENT REFUSING BOWEL MEDICATION. PRN PAIN MEDICATION ADMINISTERED FOR 04/12 "LOW BACK PAIN". TALAVERA CATH CARE PROVIDED PER PROTOCOL. ASSESSMENT COMPLETE. ABD INSICION SITES C/D/I WITH MINIMAL DRY DRAINAGE. PATIENT DENIES FURTHER NEEDS AT THIS TIME. CALL LIGHT IN REACH. BED ALARM ON.
--- NOTE | 2025-02-24 22:18 | NUR ---
PATIENT RESTING IN BED WATCHING TV. PATIENT DENIES NEEDS AT THIS TIME. CALL LIGHT IN REACH. BED ALARM ON.
[2025-02-25] VITALS (10 sets, daily range): BP systolic 101–165; BP diastolic 54–95
--- NOTE | 2025-02-25 00:08 | NUR ---
PATIENT RESTING IN BED. DENIES NEEDS. RESPIRATIONS EVEN AND UNLABORED. CALL LIGHT IN REACH. BED ALARM ON.
--- NOTE | 2025-02-25 01:13 | NUR ---
SOFTWARE VERIFICATION ENGINEER OBTAINED VITALS. PT STATES NO NEEDS AT THIS TIME. CALL LIGHT WITHIN REACH AND BED ALARM ON.
--- NOTE | 2025-02-25 02:55 | NUR ---
PATIENT RESTING IN BED ON BACK WITH EYES CLOSED. RESPIRATIONS EVEN AND UNLABORED. CALL LIGHT IN REACH.
--- NOTE | 2025-02-25 04:47 | NUR ---
PATIENT RESTING IN BED WITH EYES CLOSED. RESPIRATIONS EVEN AND UNLABORED. CALL LIGHT IN REACH. BED ALARM ON.
--- NOTE | 2025-02-25 05:25 | NUR ---
PATIENT RESTING IN BED. VS AND I&Os OBTAINED AND RECORDED. ASSESSMENT COMPLETE. PATIENT DENIES NEEDS AT THIS TIME. CALL LIGHT IN REACH. BED ALARM ON.
[2025-02-25 05:31] LABS: BASOPHILS 0.9 % (0-2); EOSINOPHILS 0.3 % (0-6); HEMATOCRIT 30.5 % (35.0-50.0); HEMOGLOBIN 10.8 g/dL (12.0-18.0); LYMPHOCYTES 12.3 % (24-44); MCH 36.1 (27-36); MCHC 35.6 g/dl (30-36); MCV 101.6 fl (81-99); MONOCYTES 10.6 % (0-12); NEUTROPHILS 75.9 % (39-80); PLATELET COUNT 257 K/uL (140-440); RDW 14.9 (10.5-15.0)
[2025-02-25 05:51] LABS: ALBUMIN 2.1 g/dL (3.4-5.0); ALBUMIN/GLOBULIN RATIO 0.62 (1.1-2.4); ANION GAP 13.8 (7-21); BILIRUBIN, TOTAL 0.3 mg/dL (0.2-1.0); CREATININE, SERUM 0.5 mg/dL (0.55-1.02); MAGNESIUM 1.8 mg/dL (1.8-2.4); PHOSPHORUS, INORGANIC 3.1 mg/dL (2.5-4.9); POTASSIUM 3.8 mmol/L (3.5-5.1); PROTEIN, TOTAL 5.5 g/dL (6.4-8.2)
--- NOTE | 2025-02-25 07:08 | NUR ---
REPORT RECEIVED FROM LORENA MENDOZA. PATIENT IS RESTING IN BED AWAKE AND ALERT, SHE IS ASKING FOR A SHOWER TODAY. WARM, WET WASH CLOTH PROVIDED SO SHE MAY WASH HER FACE PRIOR TO BREAKFAST. PATIENT ALSO INTERESTED IN BEING UP IN HER CHAIR TODAY. TALAVERA CATH FREELY DRAINING TO BEDSIDE. CPOX AT BEDSIDE. IVF INFUSING WNL. PATIENT HAS NO OTHER REQUESTS AT THIS TIME, CALL LIGHT AND PERSONAL BELONGINGS IN REACH.
[2025-02-25] MEDS ORDERED: PANTOPRAZOLE SODIUM 40 MG TABEC PO SCH (09:00)
[2025-02-25] MEDS ORDERED: THIAMINE HCL 100 MG TAB PO SCH (09:00)
--- NOTE | 2025-02-25 09:32 | NUR ---
MEDICATION ADMINISTERED BY STUDENT NURSESARA. ASSESSMENT COMPLETE. PATIENT IS RESTING IN BED WITH HOB ELEVATED. CPOX AT BEDSIDE READS 99%, PATIENT IS ON ROOM AIR. PATIENT HAS 4 LAP SITES WITH STERI-STRIPS IN PLACE. DRIED SEROSANGUINOUS DRAINAGE NOTED TO ALL 4 SITES, NO REDNESS OR WARMTH NOTED. PATIENT COMPLAINS OF MILD ABDOMINAL PAIN, PARTICULARLY AT HER UMBILICUS. ICE PACK PROVIDED AND PLACED FOR HER. BOWEL TONES ARE ACTIVE IN ALL QUADRANTS, PATIENT DENIES NAUSEA. PATIENT STATES THAT SHE IS ON THE BEDPAN. BEDPAN REMOVED, PATIENT IS UNSUCCESSFUL IN HAVING A BOWEL MOVEMENT. MARLEE-CARE AND CATH CARE PROVIDED. TALAVERA CATH WITH STAT LOCK TO INNER RIGHT THIGH, FREELY DRAINING TO SIDE OF BED. PATIENT IS ALERT AND ORIENTED THIS AM, ONLY UNABLE TO STATE THE DATE. PATIENT HAS BREAKFAST TRAY AVAILABLE. PATIENT HOB ELEVATED AND BREAKFAST TRAY MOVED BEFORE HER. PATIENT BEGINS TO EAT BREAKFAST. NO REQUESTS, CALL LIGHT AND PERSONAL BELONGINGS IN REACH.
--- NOTE | 2025-02-25 10:34 | NUR ---
LET PATIENT KNOW SHE WILL GO TO SNF ON FRIDAY. PATIENT AGREEABLE TO THE PLAN OF CARE. NO QUESTIONS OR FUTHER NEEDS FROM CM AT THIS TIME.
--- NOTE | 2025-02-25 11:22 | NUR ---
PT WORKED WITH PATIENT WITH RADIO TELEVISION ANNOUNCER ASSIST. 2PA WITH GAIT BELT AND DINH STEADY TO STAND. PATIENT WAS EXTREMELY WEAK AND UNSTEADY. PATIENT RETURNED TO BED WITH MARCELO SLING UNDERNEATH THEM. THEY WERE THEN MARCELO LIFTED INTO THE RECLINER. A WARM BLANKET WAS PROVIDED. MORE HELP WAS OFFERED TO PT AND DECLINED. THE DINH STEADY WAS REMOVED FROM THE ROOM, WIPED DOWN, AND PUT AWAY.
--- NOTE | 2025-02-25 11:35 | NUR ---
PATIENT IS UP IN THE RECLINER WITH BLE ELEVATED. PATIENT COMPLAINS OF ABDOMINAL PAIN RATED 4/10, PRN PAIN MEDICATION ADMINISTERED, SEE MAR. ICE PACK REMAINS IN PLACE, PATIENT REPORTS THIS IS NOT HELPING HER MUCH BUT SHE WILL KEEP IT. CPOX REMOVED AT THIS TIME PER POLICY. PATIENT HAS NO OTHER REQUESTS, CALL LIGHT AND PERSONAL BELONGINGS IN REACH.
--- NOTE | 2025-02-25 13:23 | NUR ---
LUNCH TRAY REMOVED. PATIENT ONLY TOOK A COUPLE OF BITES, STATES SHE DID NOT LIKE IT. CHOCOLATE ENSURE PROVIDED. PATIENT IS HOLDING HER CELL PHONE AND PRESSING ON THE SCREEN, SHE IS ASKING HOW TO CHANGE THE CHANNEL SO SHE CAN WATCH THE NEWS. GAVE PATIENT THE TV REMOTE AND EXPLAINED HOW TO USE. PATIENT ACCEPTS THE REMOTE AND VERBALIZES UNDERSTANDING. PATIENT REMAINS UP IN RECLINER WITH BLE ELEVATED, NO REQUESTS AT THIS TIME, CALL LIGHT AND PERSONAL BELONGINGS IN REACH.
--- NOTE | 2025-02-25 14:50 | NUR ---
MICRO PALEONTOLOGIST "VU WISE" ARRIVES AND ENTERS PATIENT ROOM WHILE MD PEARCE IS UPDATING PATIENT ON TEST RESULTS. MICRO PALEONTOLOGIST APPEARS IRRITABLE, IS RAISING HER VOICE, AND ASKING A LOT OF QUESTIONS/REPORTING A LOT OF THINGS TO BOTH THE PATIENT AND MD PEARCE. MICRO PALEONTOLOGIST STATES THAT SHE WORKS WITH THE PATIENT'S AT HOME. CASE MANAGEMENT NOTIFIED, CHRISTINA ARRIVES WITH STUDENT NURSE - OBINNA IMMEDIATELY NOTIFIED OF SITUATION MICRO PALEONTOLOGIST APPEARS TO BE ESCALATING, SPEAKING LOUDER, AND ASKING DIRECT QUESTIONS/STATEMENTS DIRECTLY TO THE PATIENT. OBINNA ARRIVES AND IMMEDIATELY REMOVES THE MICRO PALEONTOLOGIST TO HAVE A CONVERSATION IN THE LING. THIS RN REMAINS IN ROOM WITH MD PEARCE AND PATIENT. PATIENT IS IN HIS RECLINER AND APPEARS UPSET AND CONFUSED. PATIENT REPORTS NEEDING TIME TO THINK ABOUT TEST RESULTS. REMAINS UP IN RECLINER, CALL LIGHT AND PERSONAL BELONGINGS IN REACH, CHAIR ALARM ON. SEE CASE MANAGEMENT NOTE.
--- NOTE | 2025-02-25 14:55 | NUR ---
PATIENT IN CHAIR AT THIS TIME. THIS FOREIGN LANGUAGES DEPARTMENT CHAIR AND FOREIGN LANGUAGES DEPARTMENT CHAIR SHE WENT INTO PATIENTS ROOM TO MOVE HER BACK TO CHAIR AND PATIENT DECLINED MOVING. CALL LIGHT WITHIN REACH, NO FURTHER NEEDS.
--- NOTE | 2025-02-25 16:04 | NUR ---
PATIENT IN BED AT THIS TIME. THIS MANAGER ACTION AND MANAGER ACTION SHE ASSISTED PATIENT IN GETTING BACK TO BED USING THE MARCELO. WHEN PATIENT WAS IN BED THIS MANAGER ACTION REMOVED PATIENTS TALAVERA CATHETER PER RN RYANIS REQUEST. CALL LIGHT WITHIN REACH, NO FURTHER NEEDS AT THIS TIME.
--- NOTE | 2025-02-25 16:05 | NUR ---
PATIENT TRANSFERRED BACK TO BED VIA MARCELO BY Crystal ROLON AND SHE. TALAVERA CATH REMOVED BY BEAU ROLON, PATIENT TOLERATES WELL. FOCUSED ASSESSMENT COMPLETE. PATIENT'S INCISIONAL SITES REMAIN UNCHANGED FROM THIS AM WITH STERI-STRIPS IN PLACE, DRIED DRAINAGE UNCHANGED, NO ERYTHEMA. PATIENT DENIES NAUSEA OR ABDOMINAL DISCOMFORT. REPORTS SHE HAS BEEN HAVING FLATULENCE. NO REQUESTS AT THIS TIME, PATIENT HAS SIGNIFICANT OTHER IN ROOM THROUGHOUT. CALL LIGHT AND PERSONAL BELONGINGS IN REACH.
--- NOTE | 2025-02-25 17:23 | NUR ---
PATIENT DECLINES WORKING WITH OCCUPATIONAL THERAPY. SHE IS RESTING IN BED WITH HOB ELEVATED AND DROWSY. NO REQUESTS, CALL LIGHT AND PERSONAL BELONGINGS IN REACH.
--- NOTE | 2025-02-25 18:34 | NUR ---
OCCUPATIONAL THERAPY ASSISTS IN TURNING PATIENT IN BED AND POSITIONING HER ON THE BEDPAN. PATIENT REPORTS THAT SHE FEELS SHE IS HAVING A LOT OF GAS AND MAY NEED TO HAVE A BOWEL MOVEMENT. PATIENT ALSO NEEDS TO VOID POST TALAVERA CATH REMOVAL. PATIENT CURRENTLY ON BEDPAN. CALL LIGHT AND PERSONAL BELONGINGS IN REACH.
--- NOTE | 2025-02-25 18:36 | NUR ---
PATIENT STILL EATING AT THIS TIME. TILE BURNER CHARTED VITALS. CALL LIGHT WITHIN REACH, NO FURTHER NEEDS.
--- NOTE | 2025-02-25 18:49 | NUR ---
PATIENT ASSISTED IN GETTING OFF OF THE BEDPAN. PATIENT HAS NO SUCCESS, REPORTS SHE HAS ONLY PASSED GAS. BEDPAN IS DRY. MARLEE-CARE PROVIDED, PUREWICK PLACED AT THIS TIME. BEAU NOWAK REMAINS IN ROOM TO CHART I&Os.
--- NOTE | 2025-02-25 18:53 | NUR ---
PATIENT WAS IN HER BED AT THIS TIME, LORENA PAULA ASSISTED PATIENT ON THE BEDPAN SHE DID NOT HAVE A BM. HVAC SERVICE TECH CHARTED I&O'S, CALL LIGHT WITH IN REACH AND NOTHING ELSE NEEDED AT THIS TIME.
--- NOTE | 2025-02-25 19:22 | NUR ---
RECEIVED REPORT FROM LORENA PAULA. PT SLEEPING CURRENTLY, APPEARS COMFORTABLE.
--- NOTE | 2025-02-25 20:00 | NUR ---
PT RESTING QUIETLY. AWAKENS EASILY. ORIENTED X 4. FLAT AFFECT. DENIES PAIN. VSS. LSC DIM TO BASES, ENC DB & C. HRR. BT HYPO. ABD MILDLY DISTENDED, MILDLY TENDER. REPORTS SOME NAUSEA AFTER CONSUMING HS DOSE OF MIRALAX. REPORTS SOME FLATUS. LBM 02/23. 4 LAP SITES TO ABD W/ STERI STRIPS-VERY SCANT DRY BLOODY DRNG. PT HAS PUREWICK IN PLACE-DUE TO VOID. SCD'S IN PLACE. PT REPOSITION TO LEFT SIDE W/ 2 MOD ASSIST. SKIN CHECK COMPLETED, SKIN INTACT. WAFFLE OVERLAY MATTRESS IN PLACE. CALL LIGHT WITHIN REACH. IV TO RFA INFUSING NS @ 100MLS/HR. CONT TO ENC PO INTAKE.
--- NOTE | 2025-02-25 22:48 | NUR ---
PT INC OF LARGE BM. NO URINE IN PUREWICK CANISTER, PT UNABLE TO VOID ON BEDPAN. BLADDERSCAN FOR 794cc. WILL CONTACT MD FOR ORDERS.
--- NOTE | 2025-02-25 22:51 | NUR ---
SENIOR TREASURY ANALYST CHECK PT PUREWICK AND BREIF. PT HAD INCONT BM. SENIOR TREASURY ANALYST AND RN CHANGED PT BRIEF AND PUREWICK. PT UNABLE TO VOID. RN BLADDER SCANNED PT. BLADDER SCANNER SHOWED [phone]. PT ENCOURGED TO TRY AND VOID. PT STATES NO FURTHER NEEDS AT THIS TIME. CALL LIGHT WITHIN REACH AND BED ALARM ON.
--- NOTE | 2025-02-25 22:55 | NUR ---
DR. PEARCE ORDERED ST CATH X 2 FOR BLADDERSCAN > 250cc.
--- NOTE | 2025-02-25 23:31 | NUR ---
PT STRAIGHT CATH'D FOR 775cc CLEAR YELLOW URINE. PT TOLERATED WELL.
[2025-02-26] VITALS (10 sets, daily range): BP systolic 128–147; BP diastolic 69–82
--- NOTE | 2025-02-26 00:57 | NUR ---
PT SLEEPING, AWAKENS BRIEFLY. NEW BAG IVF HUNG-RFA IV SITE WNL.
--- NOTE | 2025-02-26 03:28 | NUR ---
PT ASLEEP, APPEARS COMFORTABLE. BREATHING EVEN AND UNLABORED.
--- NOTE | 2025-02-26 05:12 | NUR ---
RIVET DRIVER OBTAINED VITALS AND INTAKE. NO URINE IN PUREWICK AND PT BRIEF DRY, RN NOTIFED. PT STATES NO NEEDS AT THIS TIME. CALL LIGHT WITHIN REACH AND BED ALARM ON.
[2025-02-26 05:19] LABS: BASOPHILS 0.2 % (0-2); EOSINOPHILS 1.5 % (0-6); HEMATOCRIT 29.4 % (35.0-50.0); HEMOGLOBIN 10.4 g/dL (12.0-18.0); LYMPHOCYTES 20.2 % (24-44); MCH 36.2 (27-36); MCHC 35.2 g/dl (30-36); MCV 102.8 fl (81-99); NEUTROPHILS 67.1 % (39-80); PLATELET COUNT 232 K/uL (140-440); RBC 2.86 M/ul (4.3-5.7); RDW 15.1 (10.5-15.0)
--- NOTE | 2025-02-26 05:21 | NUR ---
PT BLADDER SCANNED. BLADDER SCANNER SHOWED [phone]. RN NOTIFED.
[2025-02-26 05:35] LABS: ALBUMIN/GLOBULIN RATIO 0.67 (1.1-2.4); ANION GAP 9.7 (7-21); BILIRUBIN, TOTAL 0.3 mg/dL (0.2-1.0); BUN/CREATININE RATIO 11.29 (6.0-28.6); CREATININE, SERUM 0.62 mg/dL (0.55-1.02); MAGNESIUM 1.8 mg/dL (1.8-2.4); PHOSPHORUS, INORGANIC 3.3 mg/dL (2.5-4.9); POTASSIUM 3.7 mmol/L (3.5-5.1)
--- NOTE | 2025-02-26 05:50 | NUR ---
PT AWAKE, BLADDERSCAN 919cc. PT UNABLE TO VOID. STRAIGHT CATH'D FOR 1050cc. PT SITTING UP IN BED, SIPPING WATER AND REQUESTED A CLEAR ENSURE (PROVIDED).
--- NOTE | 2025-02-26 07:05 | NUR ---
REPORT RECEIVED FROM LORENA PABON. PATIENT IS RESTING IN BED WITH HOB ELEVATED, EYES CLOSED, RR EVEN AND UNLABORED. IVF INFUSING WNL. CALL LIGHT AND PERSONAL BELONGINGS IN REACH.
--- NOTE | 2025-02-26 07:16 | NUR ---
PATIENT IN BED AT THIS TIME. PLUMBER APPRENTICE DID HOURLY ROUNDS ON PATIENT. CALL LIGHT WITHIN REACH, NO FURTHER NEEDS AT THIS TIME.
[2025-02-26] MEDS ORDERED: THIAMINE HCL 100 MG TAB PO SCH (08:00)
--- NOTE | 2025-02-26 08:58 | NUR ---
MEDICATION ADMINISTERED, SEE MAR. ASSESSMENT COMPLETE. PATIENT'S BREAKFAST TRAY SET UP FOR HER, SHE IS SLOWLY BEGINNING TO EAT. NO REQUESTS, CALL LIGHT AND PERSONAL BELONGINGS IN REACH.
--- NOTE | 2025-02-26 09:43 | NUR ---
PATIENT IN BED AT THIS TIME. THIS CONTROL CLERK REPAIRS AND CONTROL CLERK REPAIRS WANG CHARTED VITALS AND I&O'S. CALL LIGHT WITHIN REACH, NO FURTHER NEEDS AT THIS TIME.
[2025-02-26] MEDS ORDERED: TAMSULOSIN HCL 0.4 MG CAP PO SCH (10:26)
[2025-02-26 11:14] LABS: BILIRUBIN, URINE NEGATIVE (negative); BLOOD/HGB, URINE NEGATIVE (Negative); KETONE, URINE NEGATIVE (Negative); LEUK ESTERASE, URINE NEGATIVE (negative); NITRITE, URINE NEGATIVE (negative)
--- NOTE | 2025-02-26 11:17 | NUR ---
UA COLLECTED VIA STRAIGHT CATH PERFORMED BY STUDENT NURSE TARIQ. COLLECTION SENT TO LAB.
[2025-02-26 11:21] LABS: BACTERIA, URINE NONE SEEN /hpf (negative); CASTS, URINE NONE SEEN \\lpf; COLLECTION TYPE, URINE CATH; CRYSTALS, URINE NONE SEEN (0-1+); EPITHELIAL CELLS, URINE SQUAMOUS 1+ /lpf (0-1+); RED BLOOD CELLS, URINE 0-1 /hpf (0-5); REFLEX CULTURE, URINE No (No)
--- NOTE | 2025-02-26 11:54 | NUR ---
BEAU ROLON AND THIS VICE PRESIDENT DIVERSITY COMPLETED A FULL BEDBATH ON PT PT REPORTED NO PAIN GAVE PT FRESH ICE WATER PT HAS FAMILY IN ROOM FOLLOWING BEDBATH CALLL LIGHT WITHIN REACH BED RETURNED TO LOW/LOCKED POSITION NOTHING ELSE NEEDED AT THIS TIME
--- NOTE | 2025-02-26 12:59 | NUR ---
LUNCH TRAY REMOVED, PATIENT HAS EATEN 10%. VANILLA ENSURE PROVIDED PER PATIENT REQUEST. CALL LIGHT AND PERSONAL BELONGINGS IN REACH.
--- NOTE | 2025-02-26 13:24 | NUR ---
MOVED PT WITH MARCELO LIFT FROM HER BED TO HER CHAIR CHAIR LOCKED AND RECLINED PT GIVEN BLANKET, WATER, AND CALL LIGHT BED LOWERED NOTHING ELSE NEEDED AT THIS TIME
--- NOTE | 2025-02-26 14:59 | NUR ---
IN TO DO VITALS, PATIENT IN THE CHAIR SITTING UP. SHE DENIED ANY NEEDS, CALL LIGHT IN REACH.
--- NOTE | 2025-02-26 15:07 | NUR ---
PATIENT RESTING IN RECLINER WITH EYES CLOSED, MOUTH OPEN WITH SOFT AUDIBLE SNORE. WAKES TO THIS RNs VOICE. PATIENT REPORTS SHE FEELS NO NEED TO VOID AT THIS TIME. SHE ACCEPTS [employer] DRINK AND BEGINS DRINKING. NO REQUESTS, CALL LIGHT AND PERSONAL BELONGINGS IN REACH.
[2025-02-26] MEDS ORDERED: LIDOCAINE 2% VISCOUS 6 ML SYR TOP ONE (18:00)
--- NOTE | 2025-02-26 18:25 | NUR ---
PATIENT BLADDER SCANS FOR 264ML AND REPORTS SHE DOES NOT FEEL THE NEED TO VOID. MD PEARCE NOTIFIED. GIVES VERBAL ORDER FOR TALAVERA CATHETER. 16FR TALAVERA CATHETER PLACED, PATIENT DRAINING CLEAR, YELLOW URINE TO BEDSIDE. SOFTWARE ENGINEER REMAINS IN ROOM TO CHANGE PATIENT'S BRIEF AND ENSURE PATIENT IS COMFORTABLE IN BED.
--- NOTE | 2025-02-26 18:47 | NUR ---
PT MOVED BY MARCELO LIFT FROM CHAIR TO CLEANED BED. VICE PRESIDENT OF INSTRUCTION HELPED RN WITH TALAVERA INSERTION STERILE TECHNIQUE USED. 300ML OUT TALAVERA FOLLOWING INSERTION PT INVOLUNTARILY HAD A SMEAR OF STOOL FOLLOWING TALAVERA INSERTION VICE PRESIDENT OF INSTRUCTION CLEANED PT AND BRIEF REPLACED WITH CLEAN BRIEF. PILLOW PLACED UNDER PT'S LEGS AND PT IN HIGH SHARP POSITION IN BED, COVERED WITH CLEAN TOP SHEET AND BLANKET. CALL LIGHT ON PT'S LAP AND DIRECTIONS HOW TO CALL GIVEN. PT CELL PHONE, TV REMOTE AND FRESH WATER ALL WITHIN PT GRASP. BED LOWERED, PILLOW PLACED UNDER PT'S RIGHT ARM FOR COMFORT, NOTHING ELSE NEEDED AT THIS TIME.
--- NOTE | 2025-02-26 19:30 | NUR ---
RECEIVED REPORT FROM LORENA PAULA. PT RESTING IN BED, ALERT AND PLEASANT. DENIES NEEDS AT THIS TIME. CALL LIGHT WITHIN REACH.
--- NOTE | 2025-02-26 21:38 | NUR ---
PT AWAKE AND WATCHING TV. SEEMS MORE ALERT AND INTERACTIVE. REPORTS FEELING BETTER. USES CALL LIGHT APPROPRIATELY. DENIES PAIN. LSC DIM TO BASES, ENC TO DEEP BREATHE AND COUGH-PT PERFORMED X 10. HRR. ABD SLIGHTLY DISTENDED, TENDER. BTA. LBM 02/26. DENIES NAUSEA. PT FINISHED ENSURE FROM PREVIOUS SHIFT AND IS SIPPING ON WATER. 4 LAP SITES TO ABD W/ STERI STRIPS AND SCANT DRY BLOODY DRNG. TALAVERA CATH IN PLACE-CLEAR YELLOW URINE NOTED. NO TALAVERA CARE PERFORMED R/T TALAVERA JUST PLACED. RFA SL TENDER W/ FLUSH, APPEARS WNL. CALL LIGHT WITHIN REACH.
--- NOTE | 2025-02-26 22:25 | NUR ---
PT AWAKE, REQUESTED REPOSITIONING. PT REPOSITIONED TO LEFT SIDE W/ 2 ASSIST. SKIN CHECK COMPLETED W/ MARITA, RN. SKIN IS INTACT.
--- NOTE | 2025-02-26 23:48 | NUR ---
PT AWAKE, REQUESTED TO SIT EOB. 2 PERSON ASSIST TO SIT EOB, PT ABLE TO SIT AT EDGE OF BED W/ MINIMAL ASSIST TO KEEP UPRIGHT. PT DANGLED LEGS FOR SHORT TIME. ASSISTED BACK INTO BED WHEN PT REPORTED FEELING LIGHT HEADED.
[2025-02-27] VITALS (8 sets, daily range): BP systolic 109–164; BP diastolic 58–86
--- NOTE | 2025-02-27 01:44 | NUR ---
PT SLEEPING SOUNDLY. APPEARS COMFORTABLE.
--- NOTE | 2025-02-27 03:00 | NUR ---
PT STILL AWAKE, REQUESTING BSC. PT OK W/ OFFER OF BEDPAN PT REQUIRES MAX ASSIST W/ MARCELO AND FEELS LIKE BM IS URGENT. PT PUT ON BEDPAN W/ 2 ASSIST.
--- NOTE | 2025-02-27 04:16 | NUR ---
was on bedpan, had medium soft bm. Bed linen changed. f/c and osei care done, barrier cream to red anal area. scds in place. cooperative with vitals and turning and repositioning. fresh water given.
[2025-02-27 05:30] LABS: BASOPHILS 0.7 % (0-2); EOSINOPHILS 1.2 % (0-6); HEMOGLOBIN 10.7 g/dL (12.0-18.0); LYMPHOCYTES 16.5 % (24-44); MCH 36.4 (27-36); MCHC 35.7 g/dl (30-36); MCV 101.9 fl (81-99); MONOCYTES 10.8 % (0-12); NEUTROPHILS 70.8 % (39-80); PLATELET COUNT 255 K/uL (140-440); RBC 2.94 M/ul (4.3-5.7); RDW 14.9 (10.5-15.0)
[2025-02-27 05:50] LABS: ALBUMIN 2.3 g/dL (3.4-5.0); ALBUMIN/GLOBULIN RATIO 0.68 (1.1-2.4); ANION GAP 9.3 (7-21); BILIRUBIN, TOTAL 0.3 mg/dL (0.2-1.0); BUN/CREATININE RATIO 12.28 (6.0-28.6); CALCIUM 8.7 mg/dL (8.5-10.1); CREATININE, SERUM 0.57 mg/dL (0.55-1.02); MAGNESIUM 1.7 mg/dL (1.8-2.4); PHOSPHORUS, INORGANIC 4.3 mg/dL (2.5-4.9); POTASSIUM 3.3 mmol/L (3.5-5.1); PROTEIN, TOTAL 5.7 g/dL (6.4-8.2)
--- NOTE | 2025-02-27 06:00 | NUR ---
PT SLEEPING SOUNDLY, APPEARS COMFORTABLE.
--- NOTE | 2025-02-27 07:43 | NUR ---
PT RESTING QUIET ALERT AT TIME OF SHIFT REPORT. SHE AGREES SHE IS COMFORTABLE AND WITHOUT NEED. CALL LIGHT IN HER LAP FRESH LIQUIDS AT BEDSIDE.
[2025-02-27] MEDS ORDERED: POTASSIUM CHLORIDE 10 MEQ TABCR PO ONE (07:45)
--- NOTE | 2025-02-27 08:10 | NUR ---
HOURLY ROUNDING. PATIENT IS CURRENTLY SLEEPING, NO REQUEST FROM PATIENT AT THIS TIME. BOARD [place] BEEN UPDATED AND CALL LIGHT HAS BEEN PLACED WITHIN REACH
--- NOTE | 2025-02-27 08:53 | NUR ---
2 PERSON MAX ASSIST TO BSC PT HAS SOFT SMALL BM. PT TO CHAIR MORNING MEAL IS IN FRONT OF HER ALONG WITH ENSURE
--- NOTE | 2025-02-27 10:54 | NUR ---
PT CONTINUES UP IN THE CHAIR EATS SMALL AMOUNT OF MORNING MEAL DRINKS ALL OF ENSURE. IS HERE VISITING AT THIS TIME
--- NOTE | 2025-02-27 11:25 | NUR ---
HOURLY ROUNDING. PATIENT IS SITTING IN RECLINER, FAMILY MEMBER IS AT BEDSIDE, NO REQUEST FROM PATIENT OR VISITER
--- NOTE | 2025-02-27 14:14 | NUR ---
IN TO DO VITALS, PATIENT UP IN THE CHAIR WATCHING TV AND EATING. PATIENT DENIES NEEDS AT THIS TIME, CALL LIGHT IN REACH.
[2025-02-27] MEDS ORDERED: MAGNESIUM CHLORIDE 64 MG TABCR PO ONE (14:15)
--- NOTE | 2025-02-27 14:26 | NUR ---
PT SITTING UP IN THE CHAIR VISITING ACTIVELY WITH FAMILY. DENIES NEEDS AT THIS TIME.
--- NOTE | 2025-02-27 15:47 | NUR ---
PT TO BED USING MARCELO STATES SHE NEEDS TO MOVE HER BOWELS ASSISTED ONTO A BEDPAN
--- NOTE | 2025-02-27 16:13 | NUR ---
ASSISTED PT BACK TO BED FROM THE CHAIR VIA THE MARCELO LIFT AFTER AN UNSUCCESSFUL DINH STEADY ATTEMPT. THEN PATIENT USED THE BED PAIN AND HAD A VERY SMALL BOWEL MOVEMENT. BED BATH AND MARLEE CARE COMPLETE. CALL LIGHT IN REACH. PATIENT DENIES ANY NEEDS AT THIS TIME.
--- NOTE | 2025-02-27 17:50 | NUR ---
PT INCONT OF STOOL BEFORE EVENING MEAL. MARLEE CARE COMPLETE UNDERGARMENT CHANGED. PT SITTING UP IN BED WITH EVENING MEAL ENUSRE PROVIDED WELL
--- NOTE | 2025-02-27 19:18 | NUR ---
ASSISTED PATIENT BACK TO BED FROM BEDSIDE COMMODE VIA MARCELO LIFT. CALL LIGHT IN REACH BED ALARM SET. FACE WASHED AND GOWN CHANGED.
--- NOTE | 2025-02-27 19:46 | NUR ---
Pt just had another soft bm. pericare done. On room air, lungs clear, dim at bases, No c/o CP.no sob. no c/o abd pain. abd soft, EMILY, 4 lap sites with slight fading pinkish coloring in all sites. FC was dc'e earlier on am, has not voided yet. will bladder scan and if over 600cc will replace f/c as per orders. Pt aware, toleratint liquids well. moves LE. edema to ankles present, scds in place. hands edema much better sligth trace still present R hand. SL patent RFA. pleasant and cooperative
--- NOTE | 2025-02-27 22:20 | NUR ---
BLADDER SCAN RESULTS: 303ML
--- NOTE | 2025-02-28 00:18 | NUR ---
PATIENT CALLED WANTING TO USE THE BEDSIDE COMMODE. 2 ABDULLAHI ROBERTSON. PATIENT HAD A SOFT MEDIUM SIZE BM. MARLEE CARE ASSISTED. PATIENT IS BACK IN BED. ALARM ON FOR SAFETY.
--- NOTE | 2025-02-28 01:23 | NUR ---
On room air, repositions self in bed, scds in place. Was incontinent of small amount of urine in attends. Was bladder scanned afterwards and had less than 600cc as per scan. Will recheck bladder after a couple hours
[2025-02-28 04:08] VITALS: BP 166/98
[2025-02-28 04:09] VITALS: BP 166/98
--- NOTE | 2025-02-28 04:18 | NUR ---
Pt was bladder scanned again after with scanner showing >802cc. lower slight distention. F/c 16fr with 10cc balloon inserted. procedure explained, pt cooperative. inmediate return of 975cc slightly cloudy light yellow urine noted. Will notify MD in am. Vitals done at pts request. tolerating sips of fluids, coop with second assessment, no changes, scds off at her request,
[2025-02-28 05:28] LABS: BASOPHILS 1.1 % (0-2); EOSINOPHILS 1.3 % (0-6); HEMATOCRIT 31.3 % (35.0-50.0); HEMOGLOBIN 11.1 g/dL (12.0-18.0); LYMPHOCYTES 18.6 % (24-44); MCH 36.1 (27-36); MCHC 35.4 g/dl (30-36); MONOCYTES 12.7 % (0-12); NEUTROPHILS 66.3 % (39-80); PLATELET COUNT 264 K/uL (140-440); RBC 3.07 M/ul (4.3-5.7)
[2025-02-28 05:39] LABS: ALBUMIN 2.5 g/dL (3.4-5.0); ALBUMIN/GLOBULIN RATIO 0.68 (1.1-2.4); BILIRUBIN, TOTAL 0.3 mg/dL (0.2-1.0); BUN/CREATININE RATIO 17.18 (6.0-28.6); CREATININE, SERUM 0.64 mg/dL (0.55-1.02); MAGNESIUM 1.8 mg/dL (1.8-2.4); PHOSPHORUS, INORGANIC 4.8 mg/dL (2.5-4.9); PROTEIN, TOTAL 6.2 g/dL (6.4-8.2)
--- NOTE | 2025-02-28 07:31 | NUR ---
PT SLEEPING SOUNDLY AT TIME OF SHIFT REPORT LEFT UNDISTURBED. BED ALARM IS SET CALL LIGHT AND H20 IN REACH.
--- NOTE | 2025-02-28 07:55 | NUR ---
PT AWAKENED AND POSITIONED UPRIGHT IN BED FOR MORNING MEAL. ENSURE PROVIDED WELL. PT RETURNS TO DOZING, AWAKENED AGAIN AND ENCOURAGED TO EAT SHE CONTINUES TO RETURN TO EYES CLOSED
[2025-02-28] MEDS ORDERED: FOLIC ACID 1 MG TAB PO SCH (08:08)
--- NOTE | 2025-02-28 08:16 | NUR ---
PT AWAKE NOW SELF FEEDING BREAKFAST APPEARS TO BE EATING MORE ENTHUSIASTICALLY THAN SHE HAS PREVIOUSLY
--- NOTE | 2025-02-28 08:31 | NUR ---
HOURLY ROUNDING. PATIENT APPEARS TO BE TIRED THIS MORNING, SHE IS SET UP FOR BREAKFEAST AND SAID SHE WANTED TO SLEEP FOR A BIT. CALL LIGHT HAS BEEN PLACED WITHIN REACH, AND BOARD HAS BEEN UPDATED
[2025-02-28] MEDS ORDERED: CYANOCOBALAMIN 1,000 MCG TAB PO SCH (09:00)
--- NOTE | 2025-02-28 09:32 | NUR ---
CALLED AND NOTIFIED [facility], [facility] WOULD LIKE TO HAVE PATIENT AT FACILITY BY 1200 TODAY. SHE IS EXPECTING TO TRANSPORT IN PRIVATE VEHICLE. FLOOR STAFF CONCERNED PATIENT HAS BEEN A MARCELO LIFT FOR ALL TRANSFERS. SPOKE WITH [facility], SHE IS OK FOR PATIENT TO GO BY [facility], INFORMED HER OF ESTIMATED COST. SPOKE WITH [facility] TO SCHEDULE [facility]. WILL BE AT FACILITY TO TRANSPORT AT 1100 THIS AM. CALLED AND NOTIFIED [facility].
[2025-02-28] MEDS ORDERED: STIMULANT LAXA1 EACH PO (09:35)
[2025-02-28] MEDS ORDERED: TAMSULOSIN HCL0.4 MG PO (09:35)
[2025-02-28] MEDS ORDERED: VITAMIN B-1100 MG PO (09:36)
[2025-02-28] MEDS ORDERED: PANTOPRAZOLE SO40 MG PO (09:36)
[2025-02-28] MEDS ORDERED: FOLIC ACID1 MG PO (09:36)
[2025-02-28] MEDS ORDERED: VITAMIN B-121000 MCG PO (09:36)
[2025-02-28] MEDS ORDERED: HEALTHYLAX17 GM PO (09:36)
[2025-02-28 09:51] VITALS: BP 166/98
[2025-02-28 10:00] VITALS: BP 120/65
--- NOTE | 2025-02-28 10:03 | NUR ---
ORDERS FAXED TO [facility].
--- NOTE | 2025-02-28 10:03 | NUR ---
PT NOTIFIED [facility] WILL BE HERE IN ONE HOUR TO TRANSPORT. PERSONAL ITEMS GATHERED TO A BAG INCLUDING PHONE BLIND ESCORT, PERSONAL CARDS AND PHOTOS. PT PHONE LEFT AT BEDSIDE WILL PACK IT SHE LEAVES
== END 2025-02-28 10:55 | DRG 418 ==
LOC: ED 06:55 → MS 12:30
PROVIDERS: Emergency Medicine; Family Medicine; Student in an Organized Health Care Education/Training Program; Surgery; ADMIT Student in an Organized Health Care Education/Training Program; ATTEND Student in an Organized Health Care Education/Training Program
PROC: BF121ZZ Fluoroscopy of Gallbladder using Low Osmolar Contrast (ICD-10-PCS; 2025-02-24)
PROC: 0T9B70Z Drainage of Bladder with Drainage Device, Via Natural or Artificial Opening (ICD-10-PCS; 2025-02-24)
PROC: 0FT44ZZ Resection of Gallbladder, Percutaneous Endoscopic Approach (ICD-10-PCS; principal; 2025-02-24 08:30)
DX: K80.10 Calculus of gallbladder with chronic cholecystitis without obstruction (principal); E87.1 Hypo-osmolality and hyponatremia; R62.7 Adult failure to thrive; Z66 Do not resuscitate; K76.0 Fatty (change of) liver, not elsewhere classified; E87.6 Hypokalemia; R63.0 Anorexia; E83.42 Hypomagnesemia; K21.9 Gastro-esophageal reflux disease without esophagitis; R91.1 Solitary pulmonary nodule; F32.A Depression, unspecified; R33.8 Other retention of urine; F10.20 Alcohol dependence, uncomplicated; E87.8 Other disorders of electrolyte and fluid balance, not elsewhere classified; E83.39 Other disorders of phosphorus metabolism; G31.2 Degeneration of nervous system due to alcohol; F02.80 Dementia in other diseases classified elsewhere, unspecified severity, without behavioral disturbance, psychotic disturbance, mood disturbance, and anxiety; K59.00 Constipation, unspecified; Z87.19 Personal history of other diseases of the digestive system; Z87.891 Personal history of nicotine dependence; Z88.2 Allergy status to sulfonamides; Z79.899 Other long term (current) drug therapy; Z87.01 Personal history of pneumonia (recurrent)
CPT/HCPCS: 00790; 36415; 51702; 51798; 70450; 70491; 71045; 71260; 74018; 74300; 76705; 80048; 80053; 81001; 82040; 82570; 83605; 83690; 83735; 84100; 84133; 84443; 85025; 85060; 87040; 92526; 92610; 93005; 93010; 94762; 97162; 97166; 97530; 97535; A9270; J0131; J0690; J0696; J1100; J1171; J1650; J1885; J2003; J2405; J2470; J2704; J3010; J3411; J3475; J3480; J3490; J7030; J7060; J7121; P9612; Q9967